=== PATIENT | female | born 1950 | race Caucasian/White ===

== ENCOUNTER 2017-03-11 01:42 | Emergency (ER) | payer MEDICAID, MEDICARE ==
[2017-03-11 02:37] LABS: ABSOLUTE BASOPHILS # (AUTO) 0.1 10^3/uL (0.0-0.2); ABSOLUTE EOSINOPHILS # (AUTO) 0.2 10^3/uL (0.0-0.6); ABSOLUTE LYMPHOCYTES (AUTO) 3.1 10^3/uL (0.5-4.7); ABSOLUTE MONOCYTES (AUTO) 0.6 10^3/uL (0.1-1.4); ABSOLUTE NEUT (AUTO) 5.7 10^3/uL (1.7-8.2); BASOPHILS % (AUTO) 0.9 % (0-2); EOSINOPHILS % (AUTO) 2.4 % (0-6); HEMATOCRIT 45.9 % (36.0-47.0); HEMOGLOBIN 15.2 g/dL (12.0-15.5); HGB HCT DIFFERENCE -0.3; LYMPHOCYTES % (AUTO) 31.6 % (13-45); MEAN CORPUSCULAR HEMOGLOBIN 28.8 pg (27.0-33.4); MEAN CORPUSCULAR HGB CONC 33.1 g/dL (32.0-36.0); MEAN CORPUSCULAR VOLUME 87 fl (80-97); MONOCYTES % (AUTO) 6.4 % (3-13); RED BLOOD COUNT 5.28 10^6/uL (3.72-5.28); SEGMENTED NEUTROPHILS % (AUTO) 58.7 % (42-78); WHITE BLOOD COUNT 9.7 10^3/uL (4.0-10.5)
[2017-03-11 02:45] LABS: APPEARANCE,URINE CLEAR; BILIRUBIN,URINE NEGATIVE (NEGATIVE); GLUCOSE, URINE >=500 mg/dL (NEGATIVE); KETONES,URINE NEGATIVE (NEGATIVE); LEUKOCYTE ESTERASE,URINE NEGATIVE (NEGATIVE); NITRITE,URINE NEGATIVE (NEGATIVE); PROTEIN,URINE NEGATIVE (NEGATIVE); URINE SPECIFIC GRAVITY 1.029; UROBILINOGEN,URINE NEGATIVE mg/dL (<2.0)
[2017-03-11 02:47] LABS: ALANINE AMINOTRANSFERASE 27 U/L (9-52); ALBUMIN 4.2 g/dL (3.5-5.0); ALKALINE PHOSPHATASE 146 U/L (38-126); ANION GAP 13 (5-19); ASPARTATE AMINO TRANSFERASE 19 U/L (14-36); BILIRUBIN,DIRECT 0.3 mg/dL (0.0-0.4); BILIRUBIN,TOTAL 0.6 mg/dL (0.2-1.3); BLOOD UREA NITROGEN 27 mg/dL (7-20); CALCIUM 10.5 mg/dL (8.4-10.2); CARBON DIOXIDE 31 mmol/L (22-30); CHLORIDE 94 mmol/L (98-107); CREATININE RESULT 0.88 mg/dL (0.52-1.25); GLUCOSE 394 mg/dL (75-110); POTASSIUM 4.7 mmol/L (3.6-5.0); SODIUM 137.9 mmol/L (137-145); TOTAL PROTEIN 7.7 g/dL (6.3-8.2)
--- NOTE | 2017-03-11 03:31 | ER Document Report ---
ED Blood Sugar Problem - General Mode of Arrival: Ambulatory Information source: Patient TRAVEL OUTSIDE OF THE U.S. IN LAST 30 DAYS: No - HPI Onset: Other - Refer to HPI notes Associated symptoms: Weakness Similar symptoms previously: Yes Recently seen / treated by doctor: No <GABI MAYER - Last Filed: 03/11/17 04:10> <DIANA SANABRIA - Last Filed: 03/11/17 04:18> - General Chief Complaint: High Blood Sugar Stated Complaint: BLOOD PRESSURE ISSUES Time Seen by Provider: 03/11/17 03:20 Notes: Patient is a 66 year old female presenting to the emergency department for fatigue and high blood glucose levels. Patient states her blood glucose level was 466 at home and she had already taken her 50 mg Lantus around 17:00 this evening. Patient states she feels like her legs are going to give out when she walks. Patient's last A1c level was 7 or 8; patient states that her diabetes is not managed very well and her doctor is trying different medications and insulin. Patient states she recently moved to the [facility] from [facility]. Patient's primary care physician is still in [place]. (GABI MAYER) - Related Data Allergies/Adverse Reactions: codeine Adverse Reaction (Intermediate, Verified 03/11/17 02:00) Nausea Past Medical History - General Information source: Patient - Social History Smoking Status: Current Every Day Smoker Frequency of alcohol use: Rare Drug Abuse: None Family History: None Patient has suicidal ideation: No Patient has homicidal ideation: No - Past Medical History Cardiac Medical History: Reports: Hx Hypercholesterolemia, Hx Hypertension Endocrine Medical History: Reports: Hx Diabetes Mellitus Type 2 - lantis GI Medical History: Reports: Hx Gastroesophageal Reflux Disease Past Surgical History: Reports: Hx Cardiac Surgery - triple bypass 2013, Hx Cholecystectomy, Hx Gynecologic Surgery - left oophorectomy, Hx Orthopedic Surgery - left knee replacement, Hx Tonsillectomy, Hx Tubal Ligation <GABI MAYER - Last Filed: 03/11/17 04:10> Review of Systems - Review of Systems Constitutional: See HPI, Weakness EENT: No symptoms reported Cardiovascular: No symptoms reported Respiratory: No symptoms reported Gastrointestinal: No symptoms reported Genitourinary: No symptoms reported Female Genitourinary: No symptoms reported Musculoskeletal: No symptoms reported Skin: No symptoms reported Hematologic/Lymphatic: No symptoms reported Neurological/Psychological: No symptoms reported -: Yes All other systems reviewed and negative <GABI MAYER - Last Filed: 03/11/17 04:10> Physical Exam - Vital signs Interpretation: Hypertensive - General General appearance: Appears well, Alert In distress: Mild - HEENT Head: Normocephalic, Atraumatic Eyes: Normal Pupils: PERRL Mucous membranes: Dry - Respiratory Respiratory status: No respiratory distress Chest status: Nontender Breath sounds: Normal Chest palpation: Normal - Cardiovascular Rhythm: Regular Heart sounds: Normal auscultation Murmur: No - Abdominal Inspection: Obese Distension: No distension Bowel sounds: Normal Tenderness: Nontender Organomegaly: No organomegaly - Back Back: Normal, Nontender - Extremities General upper extremity: Normal inspection, Normal ROM, Normal strength General lower extremity: Normal inspection, Normal ROM, Normal strength - Neurological Neuro grossly intact: Yes Cognition: Normal Orientation: AAOx4 [place] Coma Scale Eye Opening: Spontaneous [place] Coma Scale Verbal: Oriented [place] Coma Scale Motor: Obeys Commands [place] Coma Scale Total: 15 Speech: Normal - Psychological Associated symptoms: Normal affect, Normal mood - Skin Skin Temperature: Warm Skin Moisture: Dry <GABI MAYER - Last Filed: 03/11/17 04:10> - Vital signs Interpretation: Hypertensive - General General appearance: Appears well, Alert <ELLYDIANA - Last Filed: 03/11/17 04:18> - Vital signs Vitals: Temp Pulse Resp BP Pulse Ox 97.6 F 66 16 163/63 H 97 03/11/17 01:53 03/11/17 01:53 03/11/17 01:53 03/11/17 01:53 03/11/17 01:53 Course - Laboratory Result Diagrams: 03/11/17 02:05 03/11/17 02:05 <GABI MAYER - Last Filed: 03/11/17 04:10> - Laboratory Result Diagrams: 03/11/17 02:05 03/11/17 02:05 - EKG Interpretation by De EKG shows normal: Sinus rhythm, [place], Intervals, QRS Complexes. abnormal: ST-T Waves - Borderline anterolateral T abnormalities Rate: Normal - 63 Rhythm: NSR [place]/QRS: LAHB/LAFB <DIANA SANABRIA - Last Filed: 03/11/17 04:18> - Re-evaluation Re-evalutation: 03/11/17 04:14 The patient states her A1c is usually between 7 and 8. Tonight her A1c is 12.4 This would suggest her blood sugar of 394 has become her baseline and she is probably not checking her sugars very frequently. She states that she was given regular insulin in the past but it caused her sugars to bottom out so she could not take it. (DIANA SANABRIA) - Vital Signs Vital signs: Temp Pulse Resp BP Pulse Ox 97.6 F 66 16 163/63 H 97 03/11/17 01:53 03/11/17 01:53 03/11/17 01:53 03/11/17 01:53 03/11/17 01:53 - Laboratory Laboratory results interpreted by me: 03/11/17 03/11/17 03/11/17 02:02 02:05 02:05 Chloride 94 L Carbon Dioxide 31 H BUN 27 H Glucose 394 H POC Glucose 356 H Hemoglobin A1c % 12.4 H Calcium 10.5 H Alkaline Phosphatase 146 H Urine Glucose (UA) 03/11/17 02:10 Chloride Carbon Dioxide BUN Glucose POC Glucose Hemoglobin A1c % Calcium Alkaline Phosphatase Urine Glucose (UA) >=500 H Discharge <GABI MAYER - Last Filed: 03/11/17 04:10> <DIANA SANABRIA - Last Filed: 03/11/17 04:18> - Discharge Clinical Impression: Poorly controlled diabetes mellitus, Dehydration Hyperglycemia due to type 2 diabetes mellitus Qualifiers: Diabetes mellitus intermediate insulin use: unspecified intermediate insulin use status Qualified Code(s): E11.65 - Type 2 diabetes mellitus with hyperglycemia Fatigue Qualifiers: Fatigue type: unspecified Qualified Code(s): R53.83 - Other fatigue Condition: Stable Disposition: HOME, SELF-CARE Additional Instructions: Fatigue: Fatigue can be caused by many medical and emotional problems. Fatigue can be an early symptom of infection, or can be caused by chronic infection. It can be a symptom of metabolic diseases like diabetes, hypothyroidism, or anemia. It can result from sleep problems such as sleep apnea. Fatigue can be a symptom of depression. Overuse of alcohol or caffeine can cause fatigue. Many drugs can cause fatigue, either as a side effect or when withdrawing from the drug. Until the evaluation is complete, try to keep up your normal activities. Get regular sleep hours, but avoid oversleeping. Try to get regular exercise. Eliminate alcohol, caffeine, and any unnecessary drugs, herbs, or medicines ( discuss any changes in prescription medicines with your doctor). Contact the doctor if there is any change for the worse. The fatigue you are experiencing may be due to the excessively high blood sugars you have been running for quite some time. These very high blood sugars also cause you to become dehydrated. You should drink plenty of fluids. Increase your Lantus dosing. Check your blood sugars before and after meals. Follow-up with your doctor on Monday to review your most recent lab work done this evening. RETURN TO THE EMERGENCY ROOM IF ANY NEW OR WORSENING SYMPTOMS. Scribe Attestation: 03/11/17 04:18 I personally performed the services described in the documentation, reviewed and edited the documentation which was dictated to the scribe in my presence, and it accurately records my words and actions. (DIANA SANABRIA) Scribe Documentation - Scribe Written by Gaetano:: Gaetano Howard 03/11/17 3:35 acting as scribe for :: Elly <GABI MAYER - Last Filed: 03/11/17 04:10>
[2017-03-11 03:44] LABS: ADD ON TESTING BLD IN LAB ACKNOWLEDGE
[2017-03-11 04:02] LABS: CREATINE KINASE 64 U/L (30-135)
[2017-03-11] MEDS ORDERED: INSULIN REG, HUMAN 100 UNIT/ML 3 ML VIAL (PYX) SUBCUT ONE (04:13)
[2017-03-11 04:17] LABS: CREATINE KINASE MB 0.79 ng/mL (<4.55); TROPONIN I < 0.012 ng/mL
[2017-03-11 04:42] VITALS: BP 128/71
--- NOTE | 2017-03-11 10:45 | EKG REPORT ---
SEVERITY:- ABNORMAL ECG - SINUS RHYTHM LEFT ANTERIOR FASCICULAR BLOCK BORDERLINE T ABNORMALITIES, ANT-LAT LEADS : Confirmed by: Joselito Cano 11-Mar-2017 10:43:52
== END 2017-03-11 04:30 | disposition home or self-care (01) ==
LOC: ER 01:42
DX: E11.65 Type 2 diabetes mellitus with hyperglycemia (principal); Z79.4 Long term (current) use of insulin; E86.0 Dehydration; R53.1 Weakness; I44.4 Left anterior fascicular block; F17.200 Nicotine dependence, unspecified, uncomplicated; I10 Essential (primary) hypertension; Z95.1 Presence of aortocoronary bypass graft
CPT/HCPCS: 93005; 99283; 36415; 82553; 82962; 82550; 85025; 80053; 81001; 84484; 83036; 93010; A9270; J1815

== ENCOUNTER 2017-03-14 18:34 | Emergency (ER) | payer MEDICAID, MEDICARE ==
[2017-03-14] MEDS ORDERED: DIPH/PERTUSS(ACELL)/TETANUS VAC/PF 0.5 ML SYR (>=10YO) IM ONE (20:10)
[2017-03-14] MEDS ORDERED: CEPHALEXIN 500 MG CAPSULE PO ONE (20:10)
--- NOTE | 2017-03-14 20:49 | ER Document Report ---
HPI - HPI Onset: Yesterday Onset/Duration: Sudden Quality of pain: Achy, Pressure Pain Level: 4 Associated Symptoms: None Exacerbated by: Standing, Movement, Walking Relieved by: Sitting Similar symptoms previously: No Recently seen / treated by doctor: No - CARDIOVASCULAR Cardiovascular: DENIES: Chest pain - DERM Skin Color: Normal, [place] Past Medical History - Social History Smoking Status: Current Every Day Smoker Chew tobacco use (# tins/day): No Frequency of alcohol use: None Drug Abuse: None Family History: None Patient has suicidal ideation: No Patient has homicidal ideation: No - Past Medical History Cardiac Medical History: Reports: Hx Hypercholesterolemia, Hx Hypertension Endocrine Medical History: Reports: Hx Diabetes Mellitus Type 2 - lantis Renal/ Medical History: Denies: Hx Peritoneal Dialysis GI Medical History: Reports: Hx Gastroesophageal Reflux Disease Past Surgical History: Reports: Hx Cardiac Surgery - triple bypass 2013, Hx Cholecystectomy, Hx Gynecologic Surgery - left oophorectomy, Hx Orthopedic Surgery - left knee replacement, Hx Tonsillectomy, Hx Tubal Ligation - Immunizations Hx Diphtheria, Pertussis, Tetanus Vaccination: No Vertical Provider Document - CONSTITUTIONAL Agree With Documented VS: Yes Exam Limitations: No Limitations General Appearance: WD/WN, No Apparent Distress - INFECTION CONTROL TRAVEL OUTSIDE OF THE [place]. IN LAST 30 DAYS: No - RESPIRATORY O2 Sat by Pulse Oximetry: 92 - CARDIOVASCULAR Pulses: Normal: Dorsalis pedis - MUSCULOSKELETAL/EXTREMETIES Musculoskeletal/Extremeties: MAEW, FROM, Tender - on the sole of the foot with a punture vani on the base of the left foot closer to the heel - NEURO Level of Consciousness: Awake, Alert, Appropriate Motor/Sensory: No Motor Deficit, No Sensory Deficit - DERM Integumentary: Warm, Dry, No Rash. negative: Abscess Course - Re-evaluation Re-evalutation: 03/14/17 22:34 Patient is a 8-year-old female who presents with left heel pain. Patient has known history of chronic uncontrolled diabetes. No concerns currently for diabetic ulcers. Patient initiated antibiotic instruction to follow-up with primary care this week - Vital Signs Vital signs: Temp Pulse Resp BP Pulse Ox 97.9 F 58 L 15 140/67 H 92 03/14/17 19:26 03/14/17 19:26 03/14/17 19:26 03/14/17 19:26 03/14/17 19:26 Discharge - Discharge Clinical Impression: Puncture wound Condition: Good Disposition: HOME, SELF-CARE Instructions: Puncture Wound ([facility]), Augmentin ([facility]) Prescriptions: Amox Tr/Potassium Clavulanate [Augmentin 875-125 Tablet] 1 tab PO BID 10 Days Forms: Elevated Blood Pressure Referrals: MARCIAL ZUÑIGA MD [Primary Care Provider] - Follow up in 3-5 days
[2017-03-14 21:09] VITALS: BP 142/65
== END 2017-03-14 21:00 | disposition home or self-care (01) ==
LOC: ER 18:34
DX: S91.332A Puncture wound without foreign body, left foot, initial encounter (principal); M79.672 Pain in left foot; G89.29 Other chronic pain; F17.200 Nicotine dependence, unspecified, uncomplicated; W26.9XXA Contact with unspecified sharp object(s), initial encounter
CPT/HCPCS: 99283; 90471; 82962; 90715; A9270

== ENCOUNTER 2017-05-18 15:15 | Emergency (ER) | payer MEDICARE, MEDICAID ==
--- NOTE | 2017-05-18 17:04 | ER Document Report ---
ED Medical Screen (RME) - General Chief Complaint: Dizziness Stated Complaint: DIZZINESS Time Seen by Provider: 05/18/17 17:01 Notes: Patient says that she has been experiencing dizziness since yesterday. Says she feels off balance when she walks. Feeling very tired and as if she cannot think straight. Denies any headache. Denies any loss of consciousness. Also having pain in her right back and down her right leg but that has been going on for months. Past history of hypertension, insulin-dependent diabetes, coronary bypass surgery. Depression. TRAVEL OUTSIDE OF THE [place] IN LAST 30 DAYS: No - Related Data Allergies/Adverse Reactions: codeine Adverse Reaction (Intermediate, Verified 03/11/17 02:00) Nausea Past Medical History - Social History Chew tobacco use (# tins/day): No Frequency of alcohol use: Occasional Drug Abuse: None - Past Medical History Cardiac Medical History: Reports: Hx Hypercholesterolemia, Hx Hypertension Endocrine Medical History: Reports: Hx Diabetes Mellitus Type 2 - lantis Renal/ Medical History: Denies: Hx Peritoneal Dialysis GI Medical History: Reports: Hx Gastroesophageal Reflux Disease Past Surgical History: Reports: Hx Cardiac Surgery - triple bypass 2014, Hx Cholecystectomy, Hx Gynecologic Surgery - left oophorectomy, Hx Orthopedic Surgery - left knee replacement, Hx Tonsillectomy, Hx Tubal Ligation - Immunizations Hx Diphtheria, Pertussis, Tetanus Vaccination: No Physical Exam - Vital signs Vitals: Temp Pulse Resp BP Pulse Ox 97.6 F 55 L 20 142/52 H 95 05/18/17 15:36 05/18/17 15:36 05/18/17 15:36 05/18/17 15:36 05/18/17 15:36 Course - Vital Signs Vital signs: Temp Pulse Resp BP Pulse Ox 97.6 F 55 L 20 142/52 H 95 05/18/17 15:36 05/18/17 15:36 05/18/17 15:36 05/18/17 15:36 05/18/17 15:36
[2017-05-18 17:33] LABS: ABSOLUTE BASOPHILS # (AUTO) 0.1 10^3/uL (0.0-0.2); ABSOLUTE EOSINOPHILS # (AUTO) 0.3 10^3/uL (0.0-0.6); ABSOLUTE MONOCYTES (AUTO) 0.6 10^3/uL (0.1-1.4); ABSOLUTE NEUT (AUTO) 4.2 10^3/uL (1.7-8.2); BASOPHILS % (AUTO) 0.9 % (0-2); EOSINOPHILS % (AUTO) 3.1 % (0-6); HEMATOCRIT 41.8 % (36.0-47.0); HEMOGLOBIN 14.2 g/dL (12.0-15.5); HGB HCT DIFFERENCE 0.8; LYMPHOCYTES % (AUTO) 37.2 % (13-45); MEAN CORPUSCULAR HEMOGLOBIN 29.8 pg (27.0-33.4); MEAN CORPUSCULAR HGB CONC 34.1 g/dL (32.0-36.0); MEAN CORPUSCULAR VOLUME 88 fl (80-97); MONOCYTES % (AUTO) 6.9 % (3-13); RED BLOOD COUNT 4.78 10^6/uL (3.72-5.28); RED CELL DISTRIBUTION WIDTH 12.9 % (11.5-14.0); SEGMENTED NEUTROPHILS % (AUTO) 51.9 % (42-78); WHITE BLOOD COUNT 8.1 10^3/uL (4.0-10.5)
[2017-05-18 17:49] LABS: ALANINE AMINOTRANSFERASE 29 U/L (9-52); ALBUMIN 3.9 g/dL (3.5-5.0); ALKALINE PHOSPHATASE 140 U/L (38-126); ANION GAP 10 (5-19); ASPARTATE AMINO TRANSFERASE 20 U/L (14-36); BILIRUBIN,DIRECT 0.4 mg/dL (0.0-0.4); BILIRUBIN,TOTAL 0.5 mg/dL (0.2-1.3); BLOOD UREA NITROGEN 18 mg/dL (7-20); CALCIUM 9.5 mg/dL (8.4-10.2); CARBON DIOXIDE 30 mmol/L (22-30); CHLORIDE 98 mmol/L (98-107); CREATININE RESULT 0.72 mg/dL (0.52-1.25); GLUCOSE 280 mg/dL (75-110); POTASSIUM 4.4 mmol/L (3.6-5.0); SODIUM 137.9 mmol/L (137-145); TOTAL PROTEIN 6.8 g/dL (6.3-8.2)
--- NOTE | 2017-05-18 17:50 | RADIOLOGY REPORT (SQ) ---
EXAM DESCRIPTION: CHEST PA/LAT COMPLETED DATE/TIME: 05/18/2017 5:37 pm REASON FOR STUDY: Chest pain COMPARISON: None. EXAM PARAMETERS: NUMBER OF VIEWS: two views TECHNIQUE: Digital Frontal and Lateral radiographic views of the chest acquired. RADIATION DOSE: NA LIMITATIONS: none FINDINGS: LUNGS AND PLEURA: There is linear scarring or atelectasis in the left midlung field. No c onsolidation or effusions. MEDIASTINUM AND HILAR STRUCTURES: No masses or contour abnormalities. HEART AND VASCULAR STRUCTURES: Heart normal size. No evidence for failure. BONES: There is thoracic scoliosis with concavity toward the left. HARDWARE: None in the chest. OTHER: No other significant finding. IMPRESSION: NO SIGNIFICANT RADIOGRAPHIC FINDING IN THE CHEST. TECHNICAL DOCUMENTATION: JOB ID: [id number] [employer]- All Rights Reserved
--- NOTE | 2017-05-18 17:54 | RADIOLOGY REPORT (SQ) ---
EXAM DESCRIPTION: CT HEAD WITHOUT COMPLETED DATE/TIME: 05/18/2017 5:29 pm REASON FOR STUDY: Dizzy and off-balance COMPARISON: None. TECHNIQUE: Axial images acquired through the brain without intravenous contrast. Images reviewed wi th bone, brain and subdural windows. Images stored on PACS. All CT scanners at this facility use dose modulation, iterative reconstruction, and/or weight based d osing when appropriate to reduce radiation dose to as low as reasonably achievable (ALARA). [facility]: Dose Right [facility]: CareDose [facility]: Dose Right [facility]: Teradose 4D [facility]: [employer] RADIATION DOSE: Up-to-date CT equipment and radiation dose reduction techniques were employed. CTDIv ol: 64.6 mGy. DLP: 1163 mGy-cm. mGy. LIMITATIONS: None. FINDINGS: VENTRICLES: Normal size and contour. CEREBRUM: There is decreased attenuation throughout the periventricular white matter. This is out of proportion the patient's age. This can be seen in longstanding hypertension or accelerated hyperten ailyn. Other demyelinating or dysmyelinating disorders cannot be excluded. No focal mass, hemorrhage or midline shift. CEREBELLUM: No masses. No hemorrhage. No alteration of density. No evidence for acute infarction. EXTRAAXIAL SPACES: No fluid collections. No masses. ORBITS AND GLOBE: No intra- or extraconal masses. Normal contour of globe without masses. CALVARIUM: No fracture. PARANASAL SINUSES: No fluid or mucosal thickening. SOFT TISSUES: No mass or hematoma. OTHER: No other significant finding. IMPRESSION: Diffuse periventricular subcortical white matter changes most consistent with small vess el disease. Other etiologies cannot be excluded. TECHNICAL DOCUMENTATION: JOB ID: [id number] Quality ID # [id number]: Final reports with documentation of one or more dose reduction techniques (e.g., Au tomated exposure control, adjustment of the mA and/or kV according to patient size, use of iterative reconstruction technique) 2010 [employer]- All Rights Reserved
[2017-05-18 18:01] LABS: CREATINE KINASE MB 2.27 ng/mL (<4.55)
[2017-05-18 18:02] LABS: TROPONIN I < 0.012 ng/mL
[2017-05-18 19:15] LABS: APPEARANCE,URINE CLEAR; BILIRUBIN,URINE NEGATIVE (NEGATIVE); GLUCOSE, URINE >=500 mg/dL (NEGATIVE); KETONES,URINE NEGATIVE (NEGATIVE); LEUKOCYTE ESTERASE,URINE NEGATIVE (NEGATIVE); NITRITE,URINE NEGATIVE (NEGATIVE); PROTEIN,URINE NEGATIVE (NEGATIVE); URINE SPECIFIC GRAVITY 1.016; UROBILINOGEN,URINE NEGATIVE mg/dL (<2.0)
--- NOTE | 2017-05-18 19:21 | ER Document Report ---
ED General - General Chief Complaint: Dizziness Stated Complaint: DIZZINESS Time Seen by Provider: 05/18/17 17:01 Notes: Patient is a 66-year-old female with past medical history of hypertension, hyperlipidemia, [id number] diabetes who presents with 2 days of intermittent lightheadedness and near syncope. Patient reports that the symptoms are only present after she gets up from a sitting to standing position and ambulates. She has not had any episodes of syncope. Nothing seems to improve her symptoms. She denies a history of similar symptoms in the past. No recent medication changes. She has not followed up with her primary care doctor regarding today's concerns that she is recently moved to the area. She denies any weakness, numbness, ataxia, difficulty speaking, bowel or bladder incontinence. She has not had any recent falls or head trauma. No chest pain or shortness of breath TRAVEL OUTSIDE OF THE [place] IN LAST 30 DAYS: No - Related Data Allergies/Adverse Reactions: codeine Adverse Reaction (Intermediate, Verified 03/11/17 02:00) Nausea Home Medications: Current Home Medications Gabapentin [Gabapentin] 05/18/17 [History] Lisinopril/Hydrochlorothiazide [Lisinopril-Hctz 10-12.5 mg Tab] 05/18/17 [ History] Metoprolol Tartrate [Metoprolol Tartrate] 05/18/17 [History] RX: Fluoxetine HCl [Prozac 20 mg Capsule] 05/18/17 [History] RX: Insulin Glargine,Hum.rec.anlog [Lantus Insulin 100 Unit/1 ml 10 ml] [History] RX: Pantoprazole Sodium 05/18/17 [History] Past Medical History - General Information source: Patient - Social History Smoking Status: Former Smoker Chew tobacco use (# tins/day): No Frequency of alcohol use: Occasional Drug Abuse: None Lives with: Spouse/Significant other Family History: Reviewed & Not Pertinent Patient has suicidal ideation: No Patient has homicidal ideation: No - Past Medical History Cardiac Medical History: Reports: Hx Hypercholesterolemia, Hx Hypertension Endocrine Medical History: Reports: Hx Diabetes Mellitus Type 2 - lantis Renal/ Medical History: Denies: Hx Peritoneal Dialysis GI Medical History: Reports: Hx Gastroesophageal Reflux Disease Past Surgical History: Reports: Hx Cardiac Surgery - triple bypass 2013, Hx Cholecystectomy, Hx Gynecologic Surgery - left oophorectomy, Hx Orthopedic Surgery - left knee replacement, Hx Tonsillectomy, Hx Tubal Ligation - Immunizations Hx Diphtheria, Pertussis, Tetanus Vaccination: No Review of Systems - Review of Systems Notes: Constitutional: Negative for fever. HENT: Negative for sore throat. Eyes: Negative for visual changes. Cardiovascular: Negative for chest pain. Respiratory: Negative for shortness of breath. Gastrointestinal: Negative for abdominal pain, vomiting or diarrhea. Genitourinary: Negative for dysuria. Musculoskeletal: Negative for back pain. Skin: Negative for rash. Neurological: Negative for headaches, weakness or numbness. 10 point ROS negative except as marked above and in HPI. Physical Exam - Vital signs Vitals: Temp Pulse Resp BP Pulse Ox 97.6 F 55 L 20 142/52 H 95 05/18/17 15:36 05/18/17 15:36 05/18/17 15:36 05/18/17 15:36 05/18/17 15:36 Interpretation: Bradycardic Notes: PHYSICAL EXAMINATION: GENERAL: Well-appearing, well-nourished and in no acute distress. HEAD: Atraumatic, normocephalic. EYES: Pupils equal round and reactive to light, extraocular movements intact, sclera anicteric, conjunctiva are normal. ENT: nares patent, oropharynx clear without exudates. Moist mucous membranes. NECK: Normal range of motion, supple without lymphadenopathy LUNGS: Breath sounds clear to auscultation bilaterally and equal. No wheezes rales or rhonchi. HEART: Regular bradycardia without murmurs ABDOMEN: Soft, nontender, normoactive bowel sounds. No guarding, no rebound. No masses appreciated. EXTREMITIES: Normal range of motion, no pitting or edema. No cyanosis. NEUROLOGICAL: Face symmetric. Tongue protrudes midline. Extraocular motions intact. Pupils are 2 mm and equally reactive. Normal speech, normal gait. 5 out of 5 strength in both the distal and proximal upper and lower extremities bilaterally. Sensation is grossly intact throughout. Finger to nose testing normal. Pronator drift normal. PSYCH: Normal mood, normal affect. SKIN: Warm, Dry, normal turgor, no rashes or lesions noted. Course - Re-evaluation Re-evalutation: 05/18/17 19:18 Patient presents with intermittent lightheadedness with positional change and exertion. Patient is profoundly bradycardic here in the emergency department initially at 49 bpm at time of my assessment. She is still on metoprolol tartrate 25 mg twice daily and this dosing has not changed in the past several years. I suspect the patient is over beta blocked and this is triggering her symptoms. She has no complaint of vertigo and has completely normal neurologic assessment at the bedside without any positive cerebellar testing. Moreover she has no symptoms lying in the bed. When I take her from a lying to sitting position patient immediately states this is exactly the type of symptoms she is usually having. I have instructed the patient to decrease her metoprolol to 12.5 mg twice daily and if this does not resolve her symptoms after 48 hours to completely discontinue this medication. I have also instructed her to follow- up closely with her primary care doctor. At this time will discharge with return precautions and follow-up recommendations. Verbal discharge instructions given a the bedside and opportunity for questions given. Medication warnings reviewed. Patient is in agreement with this plan and has verbalized understanding of return precautions and the need for primary care follow-up in the next 24-72 hours. - Vital Signs Vital signs: Temp Pulse Resp BP Pulse Ox 97.4 F 51 L 18 148/73 H 98 05/18/17 20:19 05/18/17 20:19 05/18/17 20:19 05/18/17 20:19 05/18/17 20:19 - Laboratory Result Diagrams: 05/18/17 17:20 05/18/17 17:20 Laboratory results interpreted by me: 05/18/17 05/18/17 17:20 18:50 Glucose 280 H Alkaline Phosphatase 140 H Urine Glucose (UA) >=500 H - Diagnostic Test Radiology reviewed: Image reviewed, Reports reviewed Radiology results interpreted by me: 05/19/17 04:20 Chest x-ray: No acute infiltrate or pneumothorax CT head: No acute intracranial bleed - EKG Interpretation by Me Additional EKG results interpreted by me: 05/19/17 04:20 Sinus bradycardia. Rate 51. No ST elevations or depressions. QTC is 417. Discharge - Discharge Clinical Impression: Bradycardia, Lightheadedness, Orthostasis Condition: Good Disposition: HOME, SELF-CARE Additional Instructions: You were seen today for lightheadedness/dizziness. Your workup is normal today. Your symptoms are likely due to your medication called metoprolol. You are currently taking 25 mg twice daily. Decrease this to 12.5 mg twice daily. If this does not resolve your symptoms after 48 hours, please completely discontinue the medication. Please follow closely with your primary care physician in the next 1-3 days. Return if you pass out, have additional episodes of lightheadedness, develop weakness/numbness, have persistent vomiting , chest pain, shortness of breath or any other symptoms that are concerning to you Referrals: MARCIAL ZUÑIGA MD [Primary Care Provider] - Follow up in 3-5 days
[2017-05-18 20:20] VITALS: BP 148/73
--- NOTE | 2017-05-19 12:50 | EKG REPORT ---
SEVERITY:- ABNORMAL ECG - SINUS RHYTHM LEFT ANTERIOR FASCICULAR BLOCK : Confirmed by: Joselito Cano 19-May-2017 12:48:34
== END 2017-05-18 21:12 | disposition home or self-care (01) ==
LOC: ER 15:15
DX: R00.1 Bradycardia, unspecified (principal); R55 Syncope and collapse; I10 Essential (primary) hypertension; E11.9 Type 2 diabetes mellitus without complications; Z87.891 Personal history of nicotine dependence; Z79.899 Other long term (current) drug therapy
CPT/HCPCS: 36415; 70450; 71020; 80053; 81001; 82553; 84484; 85025; 93005; 93010; 99285

== ENCOUNTER 2017-07-20 12:43 | Emergency (ER) | payer MEDICARE ==
[2017-07-20 13:37] LABS: VENOUS BLOOD HCO3 31.5 mmol/L (20-32); VENOUS BLOOD PCO2 53.2 mmHg (35-63); VENOUS BLOOD PH 7.39 (7.30-7.42)
[2017-07-20 13:39] LABS: ABSOLUTE BASOPHILS # (AUTO) 0.1 10^3/uL (0.0-0.2); ABSOLUTE EOSINOPHILS # (AUTO) 0.2 10^3/uL (0.0-0.6); ABSOLUTE LYMPHOCYTES (AUTO) 2.3 10^3/uL (0.5-4.7); ABSOLUTE MONOCYTES (AUTO) 0.5 10^3/uL (0.1-1.4); ABSOLUTE NEUT (AUTO) 4.8 10^3/uL (1.7-8.2); BASOPHILS % (AUTO) 1.1 % (0-2); EOSINOPHILS % (AUTO) 2.7 % (0-6); HEMATOCRIT 41.7 % (36.0-47.0); HEMOGLOBIN 14.2 g/dL (12.0-15.5); HGB HCT DIFFERENCE 0.9; MEAN CORPUSCULAR HEMOGLOBIN 29.2 pg (27.0-33.4); MEAN CORPUSCULAR VOLUME 86 fl (80-97); MONOCYTES % (AUTO) 5.9 % (3-13); RED BLOOD COUNT 4.86 10^6/uL (3.72-5.28); RED CELL DISTRIBUTION WIDTH 12.5 % (11.5-14.0); SEGMENTED NEUTROPHILS % (AUTO) 61.3 % (42-78); WHITE BLOOD COUNT 7.8 10^3/uL (4.0-10.5)
[2017-07-20 13:43] LABS: PROTHROMBIN TIME 12.9 SEC (11.4-15.4)
[2017-07-20 13:55] LABS: ALANINE AMINOTRANSFERASE 30 U/L (9-52); ALBUMIN 4.1 g/dL (3.5-5.0); ALKALINE PHOSPHATASE 141 U/L (38-126); ANION GAP 15 (5-19); ASPARTATE AMINO TRANSFERASE 16 U/L (14-36); BILIRUBIN,DIRECT 0.4 mg/dL (0.0-0.4); BILIRUBIN,TOTAL 0.8 mg/dL (0.2-1.3); BLOOD UREA NITROGEN 23 mg/dL (7-20); CALCIUM 10.1 mg/dL (8.4-10.2); CARBON DIOXIDE 28 mmol/L (22-30); CHLORIDE 97 mmol/L (98-107); CREATININE RESULT 1.01 mg/dL (0.52-1.25); POTASSIUM 4.5 mmol/L (3.6-5.0); SODIUM 139.8 mmol/L (137-145); TOTAL PROTEIN 7.2 g/dL (6.3-8.2)
[2017-07-20] MEDS ORDERED: NORMAL SALINE 1000 ML 1,000 ML IV ONE (14:02)
[2017-07-20 14:11] LABS: GLUCOSE 487 mg/dL (75-110)
[2017-07-20] MEDS ORDERED: INSULIN REG, HUMAN 100 UNIT/ML 3 ML VIAL (PYX) IV ONE (14:15)
--- NOTE | 2017-07-20 14:18 | ER Document Report ---
ED General - General Chief Complaint: Weakness Stated Complaint: WEAKNESS Time Seen by Provider: 07/20/17 14:00 Mode of Arrival: Ambulatory Information source: Patient Notes: 66-year-old diabetic female presents with complaints of weakness high blood sugar. Patient notes she ran out of her test strips Gluco Navii and does not know how much insulin to give herself. TRAVEL OUTSIDE OF THE [place] IN LAST 30 DAYS: No - HPI Onset: Just prior to arrival Onset/Duration: Sudden Quality of pain: No pain Severity: Mild Pain Level: Denies Associated symptoms: Weakness Exacerbated by: Denies Relieved by: Denies Similar symptoms previously: Yes Recently seen / treated by doctor: Yes - Related Data Allergies/Adverse Reactions: codeine Adverse Reaction (Intermediate, Verified 03/11/17 02:00) Nausea Past Medical History - Social History Smoking Status: Never Smoker Cigarette use (# per day): No Chew tobacco use (# tins/day): No Smoking Education Provided: No Family History: Reviewed & Not Pertinent - Past Medical History Cardiac Medical History: Reports: Hx Hypercholesterolemia, Hx Hypertension Endocrine Medical History: Reports: Hx Diabetes Mellitus Type 2 - lantis Renal/ Medical History: Denies: Hx Peritoneal Dialysis GI Medical History: Reports: Hx Gastroesophageal Reflux Disease Past Surgical History: Reports: Hx Cardiac Surgery - triple bypass 2014, Hx Cholecystectomy, Hx Gynecologic Surgery - left oophorectomy, Hx Orthopedic Surgery - left knee replacement, Hx Tonsillectomy, Hx Tubal Ligation - Immunizations Hx Diphtheria, Pertussis, Tetanus Vaccination: No Review of Systems - Review of Systems Notes: REVIEW OF SYSTEMS: CONSTITUTIONAL : Denies fever, chills, or sweats. Denies recent illness. EENT: Denies eye, ear, throat, or mouth pain or symptoms. Denies nasal or sinus congestion or discharge. Denies throat, tongue, or mouth swelling or difficulty swallowing. CARDIOVASCULAR: Denies chest pain. Denies palpitations or racing or irregular heart beat. Denies ankle edema. RESPIRATORY: Denies cough, cold, or chest congestion. Denies shortness of breath, difficulty breathing, or wheezing. GASTROINTESTINAL: Denies abdominal pain or distention. Denies nausea, vomiting , or diarrhea. Denies blood in vomitus, stools, or per rectum. Denies black, tarry stools. Denies constipation. GENITOURINARY: Denies difficulty urinating, painful urination, burning, frequency, blood in urine, or discharge. FEMALE GENITOURINARY: Denies vaginal bleeding, heavy or abnormal periods, irregular periods. Denies vaginal discharge or odor. MUSCULOSKELETAL: Denies back or neck pain or stiffness. Denies joint pain or swelling. SKIN: Denies rash, lesions or sores. HEMATOLOGIC : Denies easy bruising or bleeding. LYMPHATIC: Denies swollen, enlarged glands. NEUROLOGICAL: admits ot weakness PSYCHIATRIC: Denies anxiety or stress. Denies depression, suicidal ideation, or homicidal ideation. ALL OTHER SYSTEMS REVIEWED AND NEGATIVE. PHYSICAL EXAMINATION: GENERAL: Well-appearing, well-nourished and in no acute distress. HEAD: Atraumatic, normocephalic. EYES: Pupils equal round and reactive to light, extraocular movements intact, conjunctiva are normal. ENT: Nares patent, oropharynx clear without exudates. Moist mucous membranes. NECK: Normal range of motion, supple without lymphadenopathy LUNGS: Breath sounds clear to auscultation bilaterally and equal. No wheezes rales or rhonchi. HEART: Regular rate and rhythm without murmurs ABDOMEN: Soft, nontender, nondistended abdomen. No guarding, no rebound. No masses appreciated. Female : deferred Musculoskeletal: Normal range of motion, no pitting or edema. No cyanosis. NEUROLOGICAL: Cranial nerves grossly intact. Normal speech, normal gait. Normal sensory, motor exams PSYCH: Normal mood, normal affect. SKIN: Warm, Dry, normal turgor, no rashes or lesions noted. Dictation was performed using [employer] voice recognition software Physical Exam - Vital signs Vitals: Resp Pulse Ox 14 94 07/20/17 12:59 07/20/17 12:59 Course - Re-evaluation Re-evalutation: 07/20/17 14:43 pt noted to be hyperglycemia, insulin and iv fluids given , I have called [facility] and they do not have this it is noted on their website 07/20/17 20:41 Patient's blood sugars improved significantly, she wishes to be discharged I will DC her home with close follow-up. Patient must get the lancets and strips so she can actually take care of her diabetes more appropriately After performing a Medical Screening Examination, I estimate there is LOW risk for ACUTE APPENDICITIS, BOWEL OBSTRUCTION, ACUTE CHOLECYSTITIS, PERFORATED DIVERTICULITIS, INCARCERATED HERNIA, PANCREATITIS, PELVIC INFLAMMATORY DISEASE, PERFORATED ULCER, ECTOPIC , or TUBO-OVARIAN ABSCESS, thus I consider the discharge disposition reasonable. Also, there is no evidence or peritonitis , sepsis, or toxicity. I have reevaluated this patient multiple times and no significant life threatening changes are noted. The patient and I have discussed the diagnosis and risks, and we agree with discharging home with close follow-up with the understanding that symptoms and presentations can change. We also discussed returning to the Emergency Department immediately if new or worsening symptoms occur. We have discussed the symptoms which are most concerning (e.g., bloody stool, fever, changing or worsening pain, vomiting) that necessitate immediate return. - Vital Signs Vital signs: Temp Pulse Resp BP Pulse Ox 97.7 F 13 140/65 H 98 07/20/17 16:15 07/20/17 16:15 07/20/17 16:15 07/20/17 16:15 - Laboratory Result Diagrams: 07/20/17 13:08 07/20/17 13:08 Laboratory results interpreted by me: 07/20/17 07/20/17 07/20/17 13:08 15:21 15:43 Chloride 97 L BUN 23 H Est GFR (Non-Af Amer) 55 L Glucose 487 H* POC Glucose 221 H Alkaline Phosphatase 141 H Urine Glucose (UA) >=500 H Critical Care Note - Critical Care Note Total time excluding time spent on procedures (mins): 38 Comments: 38 minutes of critical care time spent in direct contact evaluating and reevaluating the patient, treating symptoms, reviewing labs and studies and speaking with family and consultants excluding any procedures Discharge - Discharge Clinical Impression: Hyperglycemia Condition: Stable Disposition: HOME, SELF-CARE Instructions: Hyperglycemia ([facility]) Additional Instructions: Follow up with your physician tomorrow for further care or return to the ED IMMEDIATELY if symptoms worsen or new concerns occur. If you cannot afford to follow up with your primary care physician a list of low cost clinics have been provided at the end of your discharge papers as well.
[2017-07-20 15:36] LABS: APPEARANCE,URINE CLEAR; BILIRUBIN,URINE NEGATIVE (NEGATIVE); GLUCOSE, URINE >=500 mg/dL (NEGATIVE); KETONES,URINE NEGATIVE (NEGATIVE); LEUKOCYTE ESTERASE,URINE NEGATIVE (NEGATIVE); NITRITE,URINE NEGATIVE (NEGATIVE); PROTEIN,URINE NEGATIVE (NEGATIVE); URINE SPECIFIC GRAVITY 1.022; UROBILINOGEN,URINE NEGATIVE mg/dL (<2.0)
[2017-07-20 18:40] VITALS: BP 140/65
--- NOTE | 2017-07-22 07:47 | EKG REPORT ---
SEVERITY:- ABNORMAL ECG - SINUS RHYTHM PROBABLE LEFT ATRIAL ABNORMALITY LEFT ANTERIOR FASCICULAR BLOCK BORDERLINE T ABNORMALITIES, ANT-LAT LEADS : Confirmed by: Fabrice Martinez MD 22-Jul-2017 07:47:01
== END 2017-07-20 16:49 | disposition home or self-care (01) ==
LOC: ER 12:43
DX: E11.65 Type 2 diabetes mellitus with hyperglycemia (principal); Z79.4 Long term (current) use of insulin; R53.1 Weakness; I10 Essential (primary) hypertension; Z95.1 Presence of aortocoronary bypass graft
CPT/HCPCS: 93005; 99291; 96360; 36415; 87040; 87086; 82962; 85025; 85610; 80053; 81001; 82803; 83605; 93010; A9270; J7030; J1815

== ENCOUNTER 2017-09-11 15:31 | Emergency (ER) | payer MEDICARE, MEDICAID ==
[2017-09-11] MEDS ORDERED: ASPIRIN 81 MG TABLET, CHEWABLE PO ONE (17:31)
--- NOTE | 2017-09-11 17:34 | ER Document Report ---
ED Medical Screen (RME) - General Chief Complaint: Chest Pain Stated Complaint: CHEST PRESSURE Time Seen by Provider: 09/11/17 17:31 Mode of Arrival: Medic Information source: Patient Notes: 67-year-old female presents to ED for complaint of chest pain and pressure 2 days with shortness of breath and no energy. She states if she tries to walk across the room she gets extremely short of breath. She has had the episodes of chest pain and pressure 2 days off and on it will get better and then get worse. She has had a history of a bypass surgery 4 years ago and at that time they told her she had a lot of fluid on her lung. She states that that time she was a heavy smoker now she just uses a per cigarettes. She went to the urgent care because of her shortness of breath and chest pain and they sent her to the ED via EMS. Lungs sound clear at this time. I have greeted and performed a rapid initial assessment of this patient. A comprehensive ED assessment and evaluation of the patient, analysis of test results and completion of medical decision making process will be conducted by an additional ED providers. TRAVEL OUTSIDE OF THE [place] IN LAST 30 DAYS: No - Related Data Allergies/Adverse Reactions: codeine Adverse Reaction (Intermediate, Verified 09/11/17 15:31) Nausea Past Medical History - Past Medical History Cardiac Medical History: Reports: Hx Hypercholesterolemia, Hx Hypertension Endocrine Medical History: Reports: Hx Diabetes Mellitus Type 2 - lantis Renal/ Medical History: Denies: Hx Peritoneal Dialysis GI Medical History: Reports: Hx Gastroesophageal Reflux Disease Past Surgical History: Reports: Hx Cardiac Surgery - triple bypass 2014, Hx Cholecystectomy, Hx Gynecologic Surgery - left oophorectomy, Hx Orthopedic Surgery - left knee replacement, Hx Tonsillectomy, Hx Tubal Ligation - Immunizations Hx Diphtheria, Pertussis, Tetanus Vaccination: No Physical Exam - Vital signs Vitals: Temp Pulse Resp BP Pulse Ox 98.3 F 81 17 131/70 H 97 09/11/17 15:57 09/11/17 15:57 09/11/17 15:57 09/11/17 15:57 09/11/17 15:57 Course - Vital Signs Vital signs: Temp Pulse Resp BP Pulse Ox 98.3 F 81 17 131/70 H 97 09/11/17 15:57 09/11/17 15:57 09/11/17 15:57 09/11/17 15:57 09/11/17 15:57
[2017-09-11 17:56] LABS: ABSOLUTE BASOPHILS # (AUTO) 0.1 10^3/uL (0.0-0.2); ABSOLUTE EOSINOPHILS # (AUTO) 0.3 10^3/uL (0.0-0.6); ABSOLUTE LYMPHOCYTES (AUTO) 3.5 10^3/uL (0.5-4.7); ABSOLUTE MONOCYTES (AUTO) 0.8 10^3/uL (0.1-1.4); ABSOLUTE NEUT (AUTO) 8.6 10^3/uL (1.7-8.2); BASOPHILS % (AUTO) 0.7 % (0-2); HEMATOCRIT 41.3 % (36.0-47.0); HEMOGLOBIN 13.8 g/dL (12.0-15.5); HGB HCT DIFFERENCE 0.1; LYMPHOCYTES % (AUTO) 26.6 % (13-45); MEAN CORPUSCULAR HEMOGLOBIN 28.4 pg (27.0-33.4); MEAN CORPUSCULAR HGB CONC 33.3 g/dL (32.0-36.0); MEAN CORPUSCULAR VOLUME 85 fl (80-97); MONOCYTES % (AUTO) 5.9 % (3-13); RED BLOOD COUNT 4.85 10^6/uL (3.72-5.28); RED CELL DISTRIBUTION WIDTH 12.7 % (11.5-14.0); SEGMENTED NEUTROPHILS % (AUTO) 64.8 % (42-78); WHITE BLOOD COUNT 13.2 10^3/uL (4.0-10.5)
--- NOTE | 2017-09-11 18:01 | RADIOLOGY REPORT (SQ) ---
EXAM DESCRIPTION: CHEST PA/LAT COMPLETED DATE/TIME: 09/11/2017 5:48 pm REASON FOR STUDY: cough short of breath chest pain COMPARISON: 05/18/2017 EXAM PARAMETERS: NUMBER OF VIEWS: two views TECHNIQUE: Digital Frontal and Lateral radiographic views of the chest acquired. RADIATION DOSE: NA LIMITATIONS: none FINDINGS: LUNGS AND PLEURA: No opacities, masses or pneumothorax. No pleural effusion. MEDIASTINUM AND HILAR STRUCTURES: No masses or contour abnormalities. HEART AND VASCULAR STRUCTURES: Heart normal size. No evidence for failure. BONES: Scoliosis. HARDWARE: Sternotomy wires. OTHER: No other significant finding. IMPRESSION: NO SIGNIFICANT RADIOGRAPHIC FINDING IN THE CHEST. TECHNICAL DOCUMENTATION: JOB ID: [id number] [employer]- All Rights Reserved
[2017-09-11 18:13] LABS: ALANINE AMINOTRANSFERASE 32 U/L (9-52); ALBUMIN 4.2 g/dL (3.5-5.0); ALKALINE PHOSPHATASE 136 U/L (38-126); ANION GAP 15 (5-19); ASPARTATE AMINO TRANSFERASE 22 U/L (14-36); BILIRUBIN,DIRECT 0.3 mg/dL (0.0-0.4); BILIRUBIN,TOTAL 0.5 mg/dL (0.2-1.3); BLOOD UREA NITROGEN 26 mg/dL (7-20); CALCIUM 10.5 mg/dL (8.4-10.2); CARBON DIOXIDE 26 mmol/L (22-30); CHLORIDE 97 mmol/L (98-107); CREATINE KINASE 93 U/L (30-135); CREATININE RESULT 0.89 mg/dL (0.52-1.25); GLUCOSE 178 mg/dL (75-110); POTASSIUM 4.4 mmol/L (3.6-5.0); SODIUM 137.7 mmol/L (137-145); TOTAL PROTEIN 7.2 g/dL (6.3-8.2)
[2017-09-11 18:26] LABS: CREATINE KINASE MB 1.32 ng/mL (<4.55)
[2017-09-11 18:27] LABS: TROPONIN I < 0.012 ng/mL
--- NOTE | 2017-09-11 20:38 | EKG REPORT ---
SEVERITY:- ABNORMAL ECG - SINUS RHYTHM PROBABLE LEFT ATRIAL ABNORMALITY LEFT ANTERIOR FASCICULAR BLOCK : Confirmed by: Joselito Cano 11-Sep-2017 20:38:09
--- NOTE | 2017-09-11 21:44 | ER Document Report ---
ED General - General Chief Complaint: Chest Pain Stated Complaint: CHEST PRESSURE Time Seen by Provider: 09/11/17 17:31 Mode of Arrival: Medic Notes: Patient is a 67-year-old female with past medical history of hypertension, hyperlipidemia, coronary artery disease status post three-vessel bypass surgery 4 years ago who presents with exertional shortness of breath that has been getting progressively worse for the past 3-4 days. Patient notes that she also has a sensation of tightness right upper abdomen which typically also worsens with exertion. She denies otherwise any distinct chest pain. She denies any pain in the arms, jaw or back. She denies any associated diaphoresis or vomiting. She was seen in urgent care and then referred to the emergency department today given concerns of a possible cardiac etiology of her presentation. She has not had any provocative testing or cardiac catheterization since her bypass surgery 4 years ago. She has not yet established a primary care doctor in the local area. TRAVEL OUTSIDE OF THE [place] IN LAST 30 DAYS: No - Related Data Allergies/Adverse Reactions: codeine Adverse Reaction (Intermediate, Verified 09/11/17 15:31) Nausea Past Medical History - General Information source: Patient - Social History Smoking Status: Current Every Day Smoker Chew tobacco use (# tins/day): No Frequency of alcohol use: None Drug Abuse: None Lives with: Spouse/Significant other Family History: Reviewed & Not Pertinent Patient has suicidal ideation: No Patient has homicidal ideation: No - Past Medical History Cardiac Medical History: Reports: Hx Hypercholesterolemia, Hx Hypertension Endocrine Medical History: Reports: Hx Diabetes Mellitus Type 2 - lantis Renal/ Medical History: Denies: Hx Peritoneal Dialysis GI Medical History: Reports: Hx Gastroesophageal Reflux Disease Past Surgical History: Reports: Hx Cardiac Surgery - triple bypass 2014, Hx Cholecystectomy, Hx Gynecologic Surgery - left oophorectomy, Hx Orthopedic Surgery - left knee replacement, Hx Tonsillectomy, Hx Tubal Ligation - Immunizations Hx Diphtheria, Pertussis, Tetanus Vaccination: No Review of Systems - Review of Systems Notes: Constitutional: Negative for fever. HENT: Negative for sore throat. Eyes: Negative for visual changes. Cardiovascular: Negative for chest pain. Respiratory: Positive for shortness of breath. Gastrointestinal: Negative for abdominal pain, vomiting or diarrhea. Genitourinary: Negative for dysuria. Musculoskeletal: Negative for back pain. Skin: Negative for rash. Neurological: Negative for headaches, weakness or numbness. 10 point ROS negative except as marked above and in HPI. Physical Exam - Vital signs Vitals: Temp Pulse Resp BP Pulse Ox 98.3 F 81 17 131/70 H 97 09/11/17 15:57 09/11/17 15:57 09/11/17 15:57 09/11/17 15:57 09/11/17 15:57 Interpretation: Normal Notes: PHYSICAL EXAMINATION: GENERAL: Well-appearing, well-nourished and in no acute distress. HEAD: Atraumatic, normocephalic. EYES: Pupils equal round and reactive to light, extraocular movements intact, sclera anicteric, conjunctiva are normal. ENT: nares patent, oropharynx clear without exudates. Moist mucous membranes. NECK: Normal range of motion, supple without lymphadenopathy LUNGS: Breath sounds clear to auscultation bilaterally and equal. No wheezes rales or rhonchi. HEART: Regular rate and rhythm without murmurs ABDOMEN: Soft, nontender, normoactive bowel sounds. No guarding, no rebound. No masses appreciated. EXTREMITIES: Normal range of motion, no pitting or edema. No cyanosis. NEUROLOGICAL: No focal neurological deficits. Moves all extremities spontaneously and on command. PSYCH: Normal mood, normal affect. SKIN: Warm, Dry, normal turgor, no rashes or lesions noted. Course - Re-evaluation Re-evalutation: 09/11/17 21:40 Presentation of chest pain in an otherwise well appearing patient. Low clinical suspicion for ACS given clinical history, exam, EKG without ST elevations or depressions, and negative initial troponin. HEART score less than or equal to 3. PE also seems unlikely given clinical history, absence of tachycardia or dyspnea. Patient is PERC criteria negative. CXR without evidence of pneumothorax or pneumonia. No widened mediastinum. Aortic dissection also seems unlikely given history, symmetric pulses, CXR, and vitals. HEART Score: History:1 EC Age:2 Risk Factors:2 Troponin:0 Total: 4 Although both of patient's troponins are normal and her EKG is without ischemic changes I remain concerned that she has exertional dyspnea has been progressively worsening over the past 1 week and does have a history of coronary artery disease. I have recommended admission to the patient for inpatient stress testing and she has stated that this is not doable due to family concerns and the need to attend to several errands. I have offered in alternative although less preferable treatment method of having her follow-up with cardiology in the morning for an outpatient stress test. Patient has elected to pursue this option and does verbalize that this is a more risky option. She understands that there is a possibility of her having an acute myocardial infarction, worsening ischemic disease, or even if we further delay a possible critical occlusion. She has capacity. She does not meet IVC criteria, denies any alcohol or drug use today. Will discharge at patient's request. - Vital Signs Vital signs: Temp Pulse Resp BP Pulse Ox 98.3 F 81 15 128/55 H 96 09/11/17 15:57 09/11/17 15:57 09/11/17 21:39 09/11/17 21:39 09/11/17 21:39 - Laboratory Result Diagrams: 09/11/17 17:33 09/11/17 17:33 Laboratory results interpreted by me: 09/11/17 09/11/17 17:33 17:33 WBC 13.2 H Absolute Neutrophils 8.6 H Chloride 97 L BUN 26 H Glucose 178 H Calcium 10.5 H Alkaline Phosphatase 136 H - Diagnostic Test Radiology reviewed: Image reviewed, Reports reviewed Radiology results interpreted by me: 09/11/17 21:42 Chest x-ray: No acute infiltrate or pneumothorax - EKG Interpretation by Me Additional EKG results interpreted by me: 09/11/17 21:42 Rate 80. Sinus rhythm. No ST elevations or depressions. QTC is 439. Discharge - Discharge Clinical Impression: Exertional dyspnea, Chest discomfort Condition: Fair Disposition: HOME, SELF-CARE Additional Instructions: Your leaving the hospital although I have recommended admission. Please follow- up with cardiology as soon as possible to consider stress testing or catheterization as I am concerned about your shortness of breath when walking. This may be related to your heart. Please call Dr. Mullins tomorrow [phone]. Please return to the emergency department immediately if you would like to be admitted to the hospital, develop further symptoms, have vomiting, or any other symptoms that are concerning to you. Prescriptions: Fluoxetine HCl 20 mg PO DAILY #30 tablet Gabapentin 600 mg PO TID #90 tablet Lisinopril/Hydrochlorothiazide [Lisinopril-Hctz 20-12.5 mg Tab] 1 each PO DAILY #30 tablet Referrals: BECKA MULLINS MD [ACTIVE STAFF] - Follow up tomorrow
[2017-09-11 22:00] VITALS: BP 128/55
== END 2017-09-11 20:09 | disposition home or self-care (01) ==
LOC: ER 15:31
DX: R06.00 Dyspnea, unspecified (principal); R07.9 Chest pain, unspecified; I10 Essential (primary) hypertension; E78.5 Hyperlipidemia, unspecified; I25.10 Atherosclerotic heart disease of native coronary artery without angina pectoris; F17.200 Nicotine dependence, unspecified, uncomplicated
CPT/HCPCS: 93005; 99285; 36415; 82553; 82550; 85025; 80053; 84484; 83880; 71020; 93010; A9270

== ENCOUNTER 2017-10-10 21:34 | Emergency (ER) | payer MEDICARE, MEDICAID ==
[2017-10-10] MEDS ORDERED: NORMAL SALINE 1000 ML 1,000 ML IV ONE (23:16)
[2017-10-11 00:24] LABS: VENOUS BLOOD BASE EXCESS 2.6 mmol/L; VENOUS BLOOD HCO3 29.7 mmol/L (20-32); VENOUS BLOOD PCO2 55.1 mmHg (35-63); VENOUS BLOOD PH 7.35 (7.30-7.42)
[2017-10-11 00:34] LABS: APPEARANCE,URINE CLEAR; BILIRUBIN,URINE NEGATIVE (NEGATIVE); COLOR,URINE STRAW; GLUCOSE, URINE >=500 mg/dL (NEGATIVE); KETONES,URINE NEGATIVE (NEGATIVE); LEUKOCYTE ESTERASE,URINE NEGATIVE (NEGATIVE); NITRITE,URINE NEGATIVE (NEGATIVE); PROTEIN,URINE NEGATIVE (NEGATIVE); UROBILINOGEN,URINE NEGATIVE mg/dL (<2.0)
[2017-10-11 00:40] LABS: ANION GAP 12 (5-19); BLOOD UREA NITROGEN 24 mg/dL (7-20); CALCIUM 10.1 mg/dL (8.4-10.2); CARBON DIOXIDE 27 mmol/L (22-30); CHLORIDE 97 mmol/L (98-107); POTASSIUM 4.7 mmol/L (3.6-5.0); SODIUM 136.4 mmol/L (137-145)
[2017-10-11] MEDS ORDERED: INSULIN REG, HUMAN 100 UNIT/ML 3 ML VIAL (PYX) IV ONE (00:44)
[2017-10-11 00:49] LABS: GLUCOSE 495 mg/dL (75-110)
--- NOTE | 2017-10-11 00:49 | ER Document Report ---
ED General - General Chief Complaint: High Blood Sugar Stated Complaint: POSSIBLE HIGH BLOOD SUGAR Time Seen by Provider: 10/10/17 23:15 Notes: Patient is a 67-year-old female with a past medical history of insulin- dependent type 2 diabetes, hypertension, morbid obesity who presents with concerns of hyperglycemia. Patient states that she ran out of her Lantus 3 days ago and has been having hyperglycemia since that time. She reports that when her blood sugars become high she feels generally lethargic and has some blurring of her vision. She denies any other symptoms however at this time. She denies any localizing infectious symptoms. Nothing seems to improve or worsen her symptoms. She has not yet been able to follow-up with her primary care doctor regarding her concerns or need for refills of her chronic medications. TRAVEL OUTSIDE OF THE [place] IN LAST 30 DAYS: No - Related Data Allergies/Adverse Reactions: codeine Adverse Reaction (Intermediate, Verified 09/11/17 15:31) Nausea Past Medical History - General Information source: Patient - Social History Smoking Status: Current Every Day Smoker Chew tobacco use (# tins/day): No Frequency of alcohol use: Rare Drug Abuse: None Lives with: Spouse/Significant other Family History: Reviewed & Not Pertinent Patient has suicidal ideation: No Patient has homicidal ideation: No - Past Medical History Cardiac Medical History: Reports: Hx Hypercholesterolemia, Hx Hypertension Endocrine Medical History: Reports: Hx Diabetes Mellitus Type 2 - lantis Renal/ Medical History: Denies: Hx Peritoneal Dialysis GI Medical History: Reports: Hx Gastroesophageal Reflux Disease Psychiatric Medical History: Reports: Hx Depression Past Surgical History: Reports: Hx Cardiac Surgery - triple bypass 2014, Hx Cholecystectomy, Hx Gynecologic Surgery - left oophorectomy, Hx Orthopedic Surgery - left knee replacement, Hx Tonsillectomy, Hx Tubal Ligation - Immunizations Hx Diphtheria, Pertussis, Tetanus Vaccination: No Review of Systems - Review of Systems Notes: Constitutional: Negative for fever. HENT: Negative for sore throat. Eyes: Negative for visual changes. Cardiovascular: Negative for chest pain. Respiratory: Negative for shortness of breath. Gastrointestinal: Negative for abdominal pain, vomiting or diarrhea. Genitourinary: Negative for dysuria. Musculoskeletal: Negative for back pain. Skin: Negative for rash. Neurological: Negative for headaches, weakness or numbness. 10 point ROS negative except as marked above and in HPI. Physical Exam - Vital signs Vitals: Temp Pulse Resp BP Pulse Ox 97.5 F 80 22 H 155/81 H 95 10/10/17 21:35 10/10/17 21:35 10/10/17 21:35 10/10/17 21:35 10/10/17 21:35 Interpretation: Hypertensive Notes: PHYSICAL EXAMINATION: GENERAL: Well-appearing, well-nourished and in no acute distress. HEAD: Atraumatic, normocephalic. EYES: Pupils equal round and reactive to light, extraocular movements intact, sclera anicteric, conjunctiva are normal. ENT: nares patent, oropharynx clear without exudates. Moist mucous membranes. NECK: Normal range of motion, supple without lymphadenopathy LUNGS: Breath sounds clear to auscultation bilaterally and equal. No wheezes rales or rhonchi. HEART: Regular rate and rhythm without murmurs ABDOMEN: Soft, nontender, normoactive bowel sounds. No guarding, no rebound. No masses appreciated. EXTREMITIES: Normal range of motion, no pitting or edema. No cyanosis. NEUROLOGICAL: No focal neurological deficits. Moves all extremities spontaneously and on command. PSYCH: Normal mood, normal affect. SKIN: Warm, Dry, normal turgor, no rashes or lesions noted. Course - Re-evaluation Re-evalutation: 10/11/17 00:44 Presentation of asymptomatic hyperglycemia. There is no evidence of HHS or diabetic ketoacidosis on laboratories or based on clinical history. Patient's vitals are within normal limits. They deny any acute focal complaints. Treatment with insulin and IV fluids given here in the emergency department with appropriate response of the blood sugar. Patient does have primary care follow-up. Patient was instructed to continue taking their m home medications and advised they will likely need to increase dietary modification and may also need medication changes. Indications to return to emergency department as well as the importance of close outpatient follow-up were discussed at length. Patient verbalized understanding of the need for close follow-up and indications to return to the ED. - Vital Signs Vital signs: Temp Pulse Resp BP Pulse Ox 97.9 F 80 16 190/85 H 96 10/11/17 01:28 10/10/17 21:35 10/11/17 01:30 10/11/17 01:30 10/11/17 01:30 - Laboratory Result Diagrams: 10/10/17 23:59 Laboratory results interpreted by me: 10/10/17 10/10/17 10/10/17 23:44 23:59 23:59 Sodium 136.4 L Chloride 97 L BUN 24 H Glucose 495 H* Hemoglobin A1c % 10.0 H Urine Glucose (UA) >=500 H Discharge - Discharge Clinical Impression: Hyperglycemia, Blurry vision Condition: Good Disposition: HOME, SELF-CARE Additional Instructions: You need to followup urgently with your primary care doctor as your blood sugars were dangerously high today. You did not have any evidence of a dangerous condition associated with these blood sugars at this time. However, it is very important that you get your blood sugars under control. Please take all of your medications exactly as directed. You should avoid foods that are high in carbohydrates and sugary foods. Losing weight will also help to better control your blood sugars. Please return to emergency department immediately if you develop weakness, persistent vomiting, confusion, or any other symptoms that are concerning to you. Prescriptions: Insulin Glargine,Hum.rec.anlog [Lantus Insulin Inj 300 Unit/3 ml Pen] 60 unit SUBCUT QHS #30 ml
[2017-10-11 01:41] VITALS: BP 190/85
== END 2017-10-11 01:41 | disposition home or self-care (01) ==
LOC: ER 21:34
DX: E11.65 Type 2 diabetes mellitus with hyperglycemia (principal); H53.8 Other visual disturbances; I10 Essential (primary) hypertension; E66.01 Morbid (severe) obesity due to excess calories; F17.200 Nicotine dependence, unspecified, uncomplicated; Z88.6 Allergy status to analgesic agent; E78.00 Pure hypercholesterolemia, unspecified; Z79.4 Long term (current) use of insulin; Z95.1 Presence of aortocoronary bypass graft; Z90.49 Acquired absence of other specified parts of digestive tract; Z96.652 Presence of left artificial knee joint; Z98.51 Tubal ligation status
CPT/HCPCS: 99283; 96360; 36415; 82962; 80048; 81001; 83036; 82803; A9270; J7030; J1815

== ENCOUNTER 2017-11-24 08:53 | Emergency (ER) | payer MEDICARE, MEDICAID ==
[2017-11-24] MEDS ORDERED: ASPIRIN 325 MG TABLET PO ONE (10:14)
[2017-11-24] MEDS ORDERED: DIPHENHYDRAMINE HCL 50 MG/ML VIAL IV ONE (10:14)
[2017-11-24] MEDS ORDERED: PROCHLORPERAZINE EDISYLATE INJ 10 MG/2 ML VIAL IV ONE (10:14)
--- NOTE | 2017-11-24 10:28 | RADIOLOGY REPORT (SQ) ---
EXAM DESCRIPTION: CHEST SINGLE VIEW COMPLETED DATE/TIME: 11/24/2017 10:13 am REASON FOR STUDY: chest pain COMPARISON: 09/11/2017 EXAM PARAMETERS: NUMBER OF VIEWS: One view. TECHNIQUE: Single frontal radiographic view of the chest acquired. RADIATION DOSE: NA LIMITATIONS: None. FINDINGS: LUNGS AND PLEURA: Mild scarring in the left mid lung. Lungs appear free of active infiltr ates. Effusions. MEDIASTINUM AND HILAR STRUCTURES: No masses. Contour normal. HEART AND VASCULAR STRUCTURES: Mild cardiomegaly. No evidence failure. BONES: Severe scoliosis convex to the right. HARDWARE: None in the chest. OTHER: No other significant finding. IMPRESSION: Mild cardiomegaly without evidence of acute cardiopulmonary disease. TECHNICAL DOCUMENTATION: JOB ID: [id number] [employer]- All Rights Reserved
--- NOTE | 2017-11-24 10:33 | ER Document Report ---
ED General - General Mode of Arrival: Ambulatory Information source: Patient TRAVEL OUTSIDE OF THE [place] IN LAST 30 DAYS: No <PEARL WILKINS - Last Filed: 11/24/17 15:56> <ANJELPARISJUANCHO - Last Filed: 11/24/17 16:07> - General Chief Complaint: Headache Stated Complaint: HEADACHE Time Seen by Provider: 11/24/17 10:05 Notes: Patient is a 67 year old female presenting to the emergency department complaining of a headache with associated symptoms of shortness of breath, heart palpitations, photophobia, cough with sputum and nausea onset around 0130. Patient states when she woke up around 0130 her heart was beating "hard" and her head was pounding so she proceeded to drink some vinegar thinking her headache was due her blood pressure. Patient states the pain was intermittent until 0830 when she could not get her headache to go away. Patient also states her headache feels similar to her prior migraines. Patient denies rhinorrhea, earaches, vomiting, diarrhea or any recent trauma. Patient has a history of cardiac bypass and migraines. Patient states she takes 2 Aspirin x2 daily. Patients petrographer is Dr. Pacheco. (PEARL WILKINS) - Related Data Allergies/Adverse Reactions: codeine Adverse Reaction (Intermediate, Verified 11/24/17 09:22) Nausea Past Medical History - General Information source: Patient - Social History Smoking Status: Current Every Day Smoker Chew tobacco use (# tins/day): No Frequency of alcohol use: None Drug Abuse: None Family History: Reviewed & Not Pertinent Patient has suicidal ideation: No Patient has homicidal ideation: No - Past Medical History Cardiac Medical History: Reports: Hx Hypercholesterolemia, Hx Hypertension Neurological Medical History: Reports: Hx Migraine Endocrine Medical History: Reports: Hx Diabetes Mellitus Type 2 - lantus GI Medical History: Reports: Hx Gastroesophageal Reflux Disease Psychiatric Medical History: Reports: Hx Depression Past Surgical History: Reports: Hx Cardiac Surgery - triple bypass 2013, Hx Cholecystectomy, Hx Gynecologic Surgery - left oophorectomy, Hx Orthopedic Surgery - left knee replacement, Hx Tonsillectomy, Hx Tubal Ligation - Immunizations Hx Diphtheria, Pertussis, Tetanus Vaccination: No <PEARL WILKINS - Last Filed: 11/24/17 15:56> Review of Systems - Review of Systems Constitutional: No symptoms reported EENT: No symptoms reported Cardiovascular: See HPI, Chest pain, Palpitations, Heart racing Respiratory: See HPI, Cough, Short of breath Gastrointestinal: See HPI, Nausea. denies: Diarrhea, Vomiting Genitourinary: No symptoms reported Female Genitourinary: No symptoms reported Musculoskeletal: No symptoms reported Skin: No symptoms reported Hematologic/Lymphatic: No symptoms reported Neurological/Psychological: No symptoms reported -: Yes All other systems reviewed and negative <PEARL WILKINS - Last Filed: 11/24/17 15:56> Physical Exam <PEARL WILKINS - Last Filed: 11/24/17 15:56> <JUANCHO MENJIVAR - Last Filed: 11/24/17 16:07> - Vital signs Vitals: Temp Pulse Resp BP Pulse Ox 97.9 F 66 18 177/64 H 96 11/24/17 09:06 11/24/17 09:06 11/24/17 09:06 11/24/17 09:06 11/24/17 09:06 - Notes Notes: GENERAL: Alert, interacts well. No acute distress. HEAD: Normocephalic, atraumatic. EYES: Pupils equal, round, and reactive to light. Extraocular movements intact. ENT: Oral mucosa moist, tongue midline. NECK: Full range of motion. Supple. Trachea midline. LUNGS: Crackles at bases bilaterally, more so on left than right. No respiratory distress. HEART: Regular rate and rhythm. No murmurs, gallops, or rubs. ABDOMEN: Soft, non-tender. Non-distended. Bowel sounds present in all 4 quadrants. EXTREMITIES: Moves all 4 extremities spontaneously. No edema, radial and dorsalis pedis pulses 2/4 bilaterally. No cyanosis. NEUROLOGICAL: Alert and oriented x3. Normal speech. PSYCH: Normal affect, normal mood. SKIN: Warm, dry, normal turgor. No rashes or lesions noted. (PEARL WILKINS) Course - Laboratory Result Diagrams: 11/24/17 10:15 11/24/17 10:15 <PEARL WILKINS - Last Filed: 11/24/17 15:56> - Laboratory Result Diagrams: 11/24/17 10:15 11/24/17 10:15 <JUANCHO MENJIVAR - Last Filed: 11/24/17 16:07> - Re-evaluation Re-evalutation: 11/24/17 14:22 CBC unremarkable, CMP shows hyperglycemia with glucose of 233 consistent with her history of diabetes, cardiac enzymes negative 2, chest x-ray shows mild cardiomegaly without any evidence of acute pulmonary disease. Patient has been in no respiratory distress, headache and chest pressure have both resolved with Compazine and Benadryl. No evidence of acute coronary syndrome. Patient will be discharged home. (JUANCHO MENJIVAR) - Vital Signs Vital signs: Temp Pulse Resp BP Pulse Ox 97.4 F 68 18 143/65 H 94 11/24/17 14:44 11/24/17 14:44 11/24/17 14:44 11/24/17 14:44 11/24/17 14:44 - Laboratory Laboratory results interpreted by me: 11/24/17 10:15 Glucose 233 H - EKG Interpretation by Me Additional EKG results interpreted by me: 11/24/17 14:22 EKG shows sinus rhythm at a rate of 68, first-degree AV block, left anterior hemiblock, poor R-wave progression, no ST segment elevations or depressions per my interpretation. (JUANCHO MENJIVAR) Discharge <PEARL WILKINS - Last Filed: 11/24/17 15:56> <JUANCHO MENJIVAR - Last Filed: 11/24/17 16:07> - Discharge Clinical Impression: Palpitations Headache Qualifiers: Headache type: unspecified Headache chronicity pattern: acute headache Intractability: intractable Qualified Code(s): R51 - Headache Hyperglycemia due to type 2 diabetes mellitus Qualifiers: Diabetes mellitus jail insulin use: without jail use Qualified Code(s ): E11.65 - Type 2 diabetes mellitus with hyperglycemia Condition: Stable Disposition: HOME, SELF-CARE Instructions: Headache ([facility]) Referrals: GIN KAUR MD [COMMUNITY BASED STAFF] - Follow up in 1 week Scribe Attestation: 11/24/17 16:07 I personally performed the services described in the documentation, reviewed and edited the documentation which was dictated to the scribe in my presence, and it accurately records my words and actions. (JUANCHO MENJIVAR) Scribe Documentation - Scribe Written by Jennye:: Gaetano Farias, 11/24/2017 10:37 acting as scribe for :: Ghada <PEARL WILKINS - Last Filed: 11/24/17 15:56>
[2017-11-24 10:44] LABS: ABSOLUTE EOSINOPHILS # (AUTO) 0.3 10^3/uL (0.0-0.6); ABSOLUTE LYMPHOCYTES (AUTO) 2.8 10^3/uL (0.5-4.7); ABSOLUTE MONOCYTES (AUTO) 0.5 10^3/uL (0.1-1.4); ABSOLUTE NEUT (AUTO) 4.2 10^3/uL (1.7-8.2); BASOPHILS % (AUTO) 0.6 % (0-2); EOSINOPHILS % (AUTO) 3.9 % (0-6); HEMATOCRIT 37.7 % (36.0-47.0); HEMOGLOBIN 12.6 g/dL (12.0-15.5); LYMPHOCYTES % (AUTO) 35.1 % (13-45); MEAN CORPUSCULAR HEMOGLOBIN 28.8 pg (27.0-33.4); MEAN CORPUSCULAR HGB CONC 33.3 g/dL (32.0-36.0); MEAN CORPUSCULAR VOLUME 86 fl (80-97); MONOCYTES % (AUTO) 6.6 % (3-13); PLATELET COUNT 269 10^3/uL (150-450); RED BLOOD COUNT 4.37 10^6/uL (3.72-5.28); RED CELL DISTRIBUTION WIDTH 12.9 % (11.5-14.0); SEGMENTED NEUTROPHILS % (AUTO) 53.8 % (42-78); TOTAL CELLS COUNTED % (AUTO) 100 %; WHITE BLOOD COUNT 7.8 10^3/uL (4.0-10.5)
--- NOTE | 2017-11-24 10:59 | EKG REPORT ---
SEVERITY:- ABNORMAL ECG - SINUS RHYTHM PROBABLE LEFT ATRIAL ABNORMALITY LEFT ANTERIOR FASCICULAR BLOCK BORDERLINE R WAVE PROGRESSION, ANTERIOR LEADS : Confirmed by: Joselito Cano 24-Nov-2017 10:58:50
[2017-11-24 11:09] LABS: ALANINE AMINOTRANSFERASE 23 U/L (9-52); ALBUMIN 3.6 g/dL (3.5-5.0); ALKALINE PHOSPHATASE 102 U/L (38-126); ANION GAP 11 (5-19); ASPARTATE AMINO TRANSFERASE 19 U/L (14-36); BILIRUBIN,DIRECT 0.3 mg/dL (0.0-0.4); BILIRUBIN,TOTAL 0.3 mg/dL (0.2-1.3); BLOOD UREA NITROGEN 18 mg/dL (7-20); CALCIUM 9.9 mg/dL (8.4-10.2); CARBON DIOXIDE 28 mmol/L (22-30); CHLORIDE 101 mmol/L (98-107); CREATINE KINASE 61 U/L (30-135); GLUCOSE 233 mg/dL (75-110); POTASSIUM 4.2 mmol/L (3.6-5.0); SODIUM 139.8 mmol/L (137-145); TOTAL PROTEIN 6.3 g/dL (6.3-8.2)
[2017-11-24 11:18] LABS: CREATINE KINASE MB 0.75 ng/mL (<4.55); NT PRO BNP 286 pg/mL (5-900); TROPONIN I < 0.012 ng/mL
[2017-11-24 14:45] VITALS: BP 143/65
== END 2017-11-24 14:44 | disposition home or self-care (01) ==
LOC: ER 08:53
DX: E11.65 Type 2 diabetes mellitus with hyperglycemia (principal); R51 Headache; R00.2 Palpitations; R06.02 Shortness of breath; H53.149 Visual discomfort, unspecified; R05 Cough; R11.0 Nausea; F17.200 Nicotine dependence, unspecified, uncomplicated; E78.00 Pure hypercholesterolemia, unspecified; I10 Essential (primary) hypertension
CPT/HCPCS: 93005; 99284; 96374; 96375; 36415; 82553; 82550; 85025; 80053; 84484; 83880; 71045; 93010; A9270; J1200; J0780

== ENCOUNTER 2017-12-01 17:12 | Emergency (ER) | payer MEDICARE, MEDICAID ==
[2017-12-01] MEDS ORDERED: ASPIRIN 81 MG TABLET, CHEWABLE PO ONE (17:55)
--- NOTE | 2017-12-01 18:16 | RADIOLOGY REPORT (SQ) ---
EXAM DESCRIPTION: CHEST SINGLE VIEW COMPLETED DATE/TIME: 12/01/2017 6:09 pm REASON FOR STUDY: chest pain COMPARISON: 11/24/2017 EXAM PARAMETERS: NUMBER OF VIEWS: One view. TECHNIQUE: Single frontal radiographic view of the chest acquired. RADIATION DOSE: NA LIMITATIONS: None. FINDINGS: LUNGS AND PLEURA: No new opacities, masses or pneumothorax. No pleural effusion. MEDIASTINUM AND HILAR STRUCTURES: No masses. Contour normal. HEART AND VASCULAR STRUCTURES: Heart stable in size. Normal vasculature. BONES: No acute findings. HARDWARE: Stable. OTHER: No other significant finding. IMPRESSION: NO ACUTE RADIOGRAPHIC FINDING IN THE CHEST. NO SIGNIFICANT CHANGE FROM PRIOR STUDY. TECHNICAL DOCUMENTATION: JOB ID: [id number] [employer]- All Rights Reserved Reading location - IP/workstation name: [email or web address]
[2017-12-01 18:17] LABS: ABSOLUTE BASOPHILS # (AUTO) 0.1 10^3/uL (0.0-0.2); ABSOLUTE EOSINOPHILS # (AUTO) 0.4 10^3/uL (0.0-0.6); ABSOLUTE LYMPHOCYTES (AUTO) 2.9 10^3/uL (0.5-4.7); ABSOLUTE MONOCYTES (AUTO) 0.5 10^3/uL (0.1-1.4); ABSOLUTE NEUT (AUTO) 5.1 10^3/uL (1.7-8.2); BASOPHILS % (AUTO) 0.9 % (0-2); HEMATOCRIT 37.2 % (36.0-47.0); HEMOGLOBIN 12.6 g/dL (12.0-15.5); LYMPHOCYTES % (AUTO) 32.1 % (13-45); MEAN CORPUSCULAR HEMOGLOBIN 28.9 pg (27.0-33.4); MEAN CORPUSCULAR HGB CONC 33.7 g/dL (32.0-36.0); MEAN CORPUSCULAR VOLUME 86 fl (80-97); MONOCYTES % (AUTO) 5.9 % (3-13); PLATELET COUNT 272 10^3/uL (150-450); RED BLOOD COUNT 4.34 10^6/uL (3.72-5.28); RED CELL DISTRIBUTION WIDTH 12.7 % (11.5-14.0); SEGMENTED NEUTROPHILS % (AUTO) 57.1 % (42-78); TOTAL CELLS COUNTED % (AUTO) 100 %
[2017-12-01 18:23] LABS: ALANINE AMINOTRANSFERASE 27 U/L (9-52); ALBUMIN 3.9 g/dL (3.5-5.0); ALKALINE PHOSPHATASE 137 U/L (38-126); ANION GAP 12 (5-19); ASPARTATE AMINO TRANSFERASE 22 U/L (14-36); BILIRUBIN,DIRECT 0.3 mg/dL (0.0-0.4); BILIRUBIN,TOTAL 0.3 mg/dL (0.2-1.3); BLOOD UREA NITROGEN 20 mg/dL (7-20); CALCIUM 9.8 mg/dL (8.4-10.2); CARBON DIOXIDE 27 mmol/L (22-30); CHLORIDE 98 mmol/L (98-107); CREATINE KINASE 70 U/L (30-135); GLUCOSE 316 mg/dL (75-110); POTASSIUM 4.2 mmol/L (3.6-5.0); SODIUM 137.3 mmol/L (137-145); TOTAL PROTEIN 7.1 g/dL (6.3-8.2)
--- NOTE | 2017-12-01 18:23 | ER Document Report ---
ED Cardiac - General Chief Complaint: Chest Pain Stated Complaint: CHEST PAIN Time Seen by Provider: 12/01/17 17:55 Notes: The patient is a 67-year-old female, past medical history chronic angina, CAD, presents after a brief episode of upper chest pain feels similar to her prior episodes. She is running out of her nitro patches and is requesting a refill. Patient already received aspirin prior to arrival. She is also having edema in her bilateral legs and said that Lasix has helped her in the past. She denies current chest pain, nausea, vomiting, shortness of breath, hemoptysis, numbness or tingling. TRAVEL OUTSIDE OF THE [place] IN LAST 30 DAYS: No - Related Data Allergies/Adverse Reactions: codeine Adverse Reaction (Intermediate, Verified 11/24/17 09:22) Nausea Past Medical History - General Information source: Patient - Social History Smoking Status: Unknown if Ever Smoked Family History: Reviewed & Not Pertinent - Past Medical History Cardiac Medical History: Reports: Hx Hypercholesterolemia, Hx Hypertension Neurological Medical History: Reports: Hx Migraine Endocrine Medical History: Reports: Hx Diabetes Mellitus Type 2 - lantus Renal/ Medical History: Denies: Hx Peritoneal Dialysis GI Medical History: Reports: Hx Gastroesophageal Reflux Disease Psychiatric Medical History: Reports: Hx Depression Past Surgical History: Reports: Hx Cardiac Surgery - triple bypass 2014, Hx Cholecystectomy, Hx Gynecologic Surgery - left oophorectomy, Hx Orthopedic Surgery - left knee replacement, Hx Tonsillectomy, Hx Tubal Ligation - Immunizations Hx Diphtheria, Pertussis, Tetanus Vaccination: No Review of Systems - Review of Systems Notes: REVIEW OF SYSTEMS: CONSTITUTIONAL: -fevers, -chills EENT: -eye pain, -difficulty swallowing, -nasal congestion CARDIOVASCULAR: +chest pain, -syncope. RESPIRATORY: -cough, -SOB GASTROINTESTINAL: -abdominal pain, -nausea, -vomiting, -diarrhea GENITOURINARY: -dysuria, -hematuria MUSCULOSKELETAL: -back pain, -neck pain SKIN: -rash or skin lesions. HEMATOLOGIC: -easy bruising or bleeding. LYMPHATIC: -swollen, enlarged glands. NEUROLOGICAL: -altered mental status or loss of consciousness, -headache, - neurologic symptoms PSYCHIATRIC: -anxiety, -depression. ALL OTHER SYSTEMS REVIEWED AND NEGATIVE. Physical Exam - Vital signs Vitals: BP Pulse Ox 138/71 H 98 12/01/17 17:12 12/01/17 17:12 - Notes Notes: PHYSICAL EXAMINATION: GENERAL: Well-appearing, well-nourished and in no acute distress. HEAD: Atraumatic, normocephalic. EYES: Pupils equal round and reactive to light, extraocular movements intact, sclera anicteric, conjunctiva are normal. ENT: nares patent, oropharynx clear without exudates. Moist mucous membranes. NECK: Normal range of motion, supple without lymphadenopathy LUNGS: Breath sounds clear to auscultation bilaterally and equal. No wheezes rales or rhonchi. HEART: Regular rate and rhythm without murmurs ABDOMEN: Soft, nontender, normoactive bowel sounds. No guarding, no rebound. No masses appreciated. EXTREMITIES: Normal range of motion, 2+pitting edema in B/L lower extremities. No cyanosis. NEUROLOGICAL: Cranial nerves grossly intact. Normal speech, normal gait. Normal sensory and motor exams. PSYCH: Normal mood, normal affect. SKIN: Warm, Dry, normal turgor, no rashes or lesions noted. Course - Re-evaluation Re-evalutation: Patient with her usual chest pain that resolved after taking nitro. She is requesting a refill of her nitro patches and some Lasix to help with her peripheral edema. She has an appointment with her primary care physician and lead investigator soon. 2 troponins and EKG do not show any evidence of ischemia. Patient has had evaluation for this chest pain in the past by her lead investigator was told that it was angina and there is no need for a stent. Will provide her with a few days of Lasix to help with her increased peripheral edema. Symptoms atypical for PE or aortic dissection at this time. Given very strict return precautions and she understands. - Vital Signs Vital signs: Temp Pulse Resp BP Pulse Ox 11 L 169/75 H 96 12/01/17 21:01 12/01/17 21:01 12/01/17 21:01 - Laboratory Result Diagrams: 12/01/17 16:35 12/01/17 16:35 Laboratory results interpreted by me: 12/01/17 16:35 Glucose 316 H Alkaline Phosphatase 137 H - Diagnostic Test Radiology reviewed: Image reviewed, Reports reviewed Radiology results interpreted by me: CXR: NAD - EKG Interpretation by Me EKG shows normal: Sinus rhythm, [place], Intervals, QRS Complexes, ST-T Waves Rate: Normal When compared to previous EKG there are: No significant change Discharge - Discharge Clinical Impression: Peripheral edema Chest pain Qualifiers: Chest pain type: unspecified Qualified Code(s): R07.9 - Chest pain, unspecified Condition: Stable Disposition: HOME, SELF-CARE Additional Instructions: CHEST PAIN OF UNCLEAR CAUSE: The exact cause of your chest pain isn't clear. Fortunately, there is no evidence of a dangerous medical condition. Further testing may be required to find the source of the pain. Most often, we find that this pain is coming from the chest wall -- the muscles or rib joints in the chest. But chest pain can come from the lung and lung lining, the esophagus, the heart valves or heart lining, and even the stomach or gallbladder. Rest. Eat lightly until the pain is gone. We may prescribe medicine for pain and inflammation. You should call the physician immediately if the pain radiates to the shoulder, jaw or arms; if you start to run a fever or develop a cough; or if you develop shortness of breath, or other new or alarming symptoms. NORMAL EXAM AND WORKUP: At this time, your examination and workup show no significant abnormality. No significant abnormal physical findings were noted. All laboratory, EKG, and imaging (x-ray, CT scans, ultrasound) studies that were ordered show no significant abnormality. Although your examination and all studies that were ordered showed no significant abnormal finding, there are no examinations and no studies that are 100% accurate. There is always the possibility that some abnormality could exist and not be detected with physical examination or within the limits and capabilities of laboratory and other studies. You should return or follow up as you were instructed on your visit today for further evaluation if your symptoms do not resolve. ANGINA EPISODE: Your physician has diagnosed the pain you experienced as an episode of angina. Angina occurs when a portion of the heart muscle temporarily lacks oxygen. It does not cause any permanent heart damage, but serves as a warning. Hospitalization is not necessary now. Evaluation of your cardiac condition , and medical therapy for angina will be necessary. It's important you be sure to keep all appointments and take medication exactly as prescribed. Angina is usually treated with a type of "nitrate" medication. This is available as ointment, pills, or sublingual (under the tongue) tablets. Depending on your clinical situation, other medications may be added to help control angina. These may include beta blockers or calcium blockers. If episodes of angina are occurring with increased frequency, or if chest pain lasts longer than 15 minutes or does not respond to nitroglycerin, you must seek emergency medical care immediately. ASPIRIN: Aspirin has been shown to have a beneficial effect on blood circulation by reducing the clotting effect of platelets in the blood. These beneficial effects can be achieved by taking just a single baby (81 mg) aspirin a day. It is recommended that any person over the age of forty take a single baby aspirin every day for heart and brain circulation, unless you are allergic to aspirin or have some significant bleeding disorder. It is strongly recommended that people who have proven cardiac or blood circulation disturbances should take a baby aspirin every day. NITRATES: Nitroglycerin and related longer-acting nitrate medications are used to prevent or treat attacks of angina. These medicines dilate blood vessels, decreasing the work of the heart, and improving its supply of oxygen. Many different forms are available, including sublingual tablets (used under the tongue), sprays, skin patches, and long-acting pills. If the particular form of medication you have been given is not working well for you, contact your doctor. Long-acting forms: Take exactly as prescribed. Sudden stopping of medication can provoke increased attacks. Sublingual tabs or spray: A headache will usually occur with use. Sit or lie while waiting for the pain to go away. If angina doesn't respond to three doses (five minutes apart), call for emergency assistance. FOLLOW-UP CARE: If you have been referred to a physician for follow-up care, call the physician s office for an appointment as you were instructed or within the next two days. If you experience worsening or a significant change in your symptoms, notify the physician immediately or return to the Emergency Department at any time for re-evaluation. Prescriptions: Furosemide [Lasix 40 mg Tablet] 40 mg PO QAM #5 tablet Nitroglycerin [Nitro-Dur 10 mg (0.4MG/Hr) Transdermal Patch] 1 patch TD QAM #30 patch.[id number] Referrals: JUANCARLOS POE MD [ACTIVE STAFF] - Follow up as needed
--- NOTE | 2017-12-01 19:01 | EKG REPORT ---
SEVERITY:- ABNORMAL ECG - SINUS RHYTHM PROBABLE LEFT ATRIAL ABNORMALITY LEFT ANTERIOR FASCICULAR BLOCK POOR R WAVE PROGRESSION. : Confirmed by: Fabrice Martinez MD 01-Dec-2017 19:00:25
[2017-12-01 21:34] VITALS: BP 169/75
== END 2017-12-01 21:42 | disposition home or self-care (01) ==
LOC: ER 17:12
DX: R07.9 Chest pain, unspecified (principal); R60.0 Localized edema; I25.10 Atherosclerotic heart disease of native coronary artery without angina pectoris
CPT/HCPCS: 36415; 71045; 80053; 82550; 84484; 85025; 93005; 93010; 99285

== ENCOUNTER 2018-07-14 22:03 | Emergency (ER) | payer MEDICARE, MEDICAID ==
[2018-07-14 22:50] LABS: ABSOLUTE BASOPHILS # (AUTO) 0.1 10^3/uL (0.0-0.2); ABSOLUTE EOSINOPHILS # (AUTO) 0.3 10^3/uL (0.0-0.6); ABSOLUTE LYMPHOCYTES (AUTO) 3.3 10^3/uL (0.5-4.7); ABSOLUTE MONOCYTES (AUTO) 0.7 10^3/uL (0.1-1.4); ABSOLUTE NEUT (AUTO) 7.1 10^3/uL (1.7-8.2); BASOPHILS % (AUTO) 0.6 % (0-2); EOSINOPHILS % (AUTO) 2.3 % (0-6); HEMATOCRIT 39.3 % (36.0-47.0); HEMOGLOBIN 13.3 g/dL (12.0-15.5); MEAN CORPUSCULAR HEMOGLOBIN 28.5 pg (27.0-33.4); MEAN CORPUSCULAR HGB CONC 33.8 g/dL (32.0-36.0); MEAN CORPUSCULAR VOLUME 84 fl (80-97); MONOCYTES % (AUTO) 6.1 % (3-13); PLATELET COUNT 283 10^3/uL (150-450); RED BLOOD COUNT 4.66 10^6/uL (3.72-5.28); RED CELL DISTRIBUTION WIDTH 13.6 % (11.5-14.0); TOTAL CELLS COUNTED % (AUTO) 100 %; WHITE BLOOD COUNT 11.4 10^3/uL (4.0-10.5)
[2018-07-14] MEDS ORDERED: METOCLOPRAMIDE HCL INJ/PF 10 MG/2 ML SDV IV ONE (22:55)
[2018-07-14] MEDS ORDERED: NORMAL SALINE 1000 ML 1,000 ML IV ONE (22:55)
[2018-07-14 23:07] LABS: ALANINE AMINOTRANSFERASE 21 U/L (9-52); ALBUMIN 3.7 g/dL (3.5-5.0); ALKALINE PHOSPHATASE 112 U/L (38-126); ANION GAP 10 (5-19); ASPARTATE AMINO TRANSFERASE 14 U/L (14-36); BILIRUBIN,DIRECT 0.4 mg/dL (0.0-0.4); BILIRUBIN,TOTAL 0.4 mg/dL (0.2-1.3); BLOOD UREA NITROGEN 38 mg/dL (7-20); CALCIUM 9.7 mg/dL (8.4-10.2); CARBON DIOXIDE 28 mmol/L (22-30); CHLORIDE 96 mmol/L (98-107); GLUCOSE 366 mg/dL (75-110); POTASSIUM 3.9 mmol/L (3.6-5.0); SODIUM 133.7 mmol/L (137-145); TOTAL PROTEIN 6.6 g/dL (6.3-8.2)
[2018-07-14 23:09] LABS: APPEARANCE,URINE CLEAR; BILIRUBIN,URINE NEGATIVE (NEGATIVE); COLOR,URINE YELLOW; GLUCOSE, URINE >=500 mg/dL (NEGATIVE); KETONES,URINE NEGATIVE (NEGATIVE); LEUKOCYTE ESTERASE,URINE NEGATIVE (NEGATIVE); NITRITE,URINE NEGATIVE (NEGATIVE); PROTEIN,URINE NEGATIVE (NEGATIVE); URINE SPECIFIC GRAVITY 1.023; UROBILINOGEN,URINE NEGATIVE mg/dL (<2.0)
[2018-07-14] MEDS ORDERED: INSULIN REG, HUMAN 100 UNIT/ML 3 ML VIAL (PYX) SUBCUT ONE (23:36)
--- NOTE | 2018-07-15 00:28 | ER Document Report ---
ED General - General Chief Complaint: High Blood Sugar Stated Complaint: DIZZINESS Time Seen by Provider: 07/14/18 22:29 Notes: Patient is a 67-year-old female with past medical history of hypertension, hyperlipidemia, type 2 diabetes, morbid obesity, who presents with concerns of lightheadedness, weakness and hyperglycemia. The patient reports that just prior to arrival she began to feel lightheaded like she was about to pass out. States she had felt generally fatigued and weak all day. She checked her blood sugar and found it to be over 400 propping her to come to the emergency department. She has a history of similar symptoms in the past when she has been hyperglycemic. She has not contacted her primary care doctor regarding today's concerns. She has been taking all medications as directed. She denies dietary indiscretions. She denies any chest pain, shortness of breath, abdominal pain, vomiting, diarrhea, headache or neck pain. She states her symptoms have overall been improving since onset although no specific action triggered this improvement. Nothing worsened the symptoms were present. TRAVEL OUTSIDE OF THE [place] IN LAST 30 DAYS: No - Related Data Allergies/Adverse Reactions: codeine Adverse Reaction (Intermediate, Verified 11/24/17 09:22) Nausea Past Medical History - General Information source: Patient - Social History Smoking Status: Current Every Day Smoker Chew tobacco use (# tins/day): No Frequency of alcohol use: None Drug Abuse: None Lives with: Spouse/Significant other Family History: Reviewed & Not Pertinent Patient has suicidal ideation: No Patient has homicidal ideation: No - Past Medical History Cardiac Medical History: Reports: Hx Hypercholesterolemia, Hx Hypertension Neurological Medical History: Reports: Hx Migraine Endocrine Medical History: Reports: Hx Diabetes Mellitus Type 2 - lantus Renal/ Medical History: Denies: Hx Peritoneal Dialysis GI Medical History: Reports: Hx Gastroesophageal Reflux Disease Psychiatric Medical History: Reports: Hx Depression Past Surgical History: Reports: Hx Cardiac Surgery - triple bypass 2014, Hx Cholecystectomy, Hx Gynecologic Surgery - left oophorectomy, Hx Orthopedic Surgery - left knee replacement, Hx Tonsillectomy, Hx Tubal Ligation - Immunizations Hx Diphtheria, Pertussis, Tetanus Vaccination: No Review of Systems - Review of Systems Notes: Constitutional: Negative for fever. HENT: Negative for sore throat. Eyes: Negative for visual changes. Cardiovascular: Negative for chest pain. Respiratory: Negative for shortness of breath. Gastrointestinal: Negative for abdominal pain, vomiting or diarrhea. Genitourinary: Negative for dysuria. Musculoskeletal: Negative for back pain. Skin: Negative for rash. Neurological: Negative for headaches, weakness or numbness. 10 point ROS negative except as marked above and in HPI. Physical Exam - Vital signs Vitals: Temp Pulse Resp BP Pulse Ox 97.2 F 90 24 H 151/62 H 94 07/14/18 22:05 07/14/18 22:05 07/14/18 22:05 07/14/18 22:05 07/14/18 22:05 Interpretation: Hypertensive Notes: PHYSICAL EXAMINATION: GENERAL: Well-appearing, well-nourished and in no acute distress. HEAD: Atraumatic, normocephalic. EYES: Pupils equal round and reactive to light, extraocular movements intact, sclera anicteric, conjunctiva are normal. ENT: nares patent, oropharynx clear without exudates. Moderately dry mucous membranes. NECK: Normal range of motion, supple without lymphadenopathy LUNGS: Breath sounds clear to auscultation bilaterally and equal. No wheezes rales or rhonchi. HEART: Regular rate and rhythm without murmurs ABDOMEN: Soft, nontender, normoactive bowel sounds. No guarding, no rebound. No masses appreciated. EXTREMITIES: Normal range of motion, no pitting or edema. No cyanosis. NEUROLOGICAL: Face symmetric. Tongue protrudes midline. Extraocular motions intact. Pupils are 2 mm and equally reactive. Normal speech, normal gait. 5 out of 5 strength in both the distal and proximal upper and lower extremities bilaterally. Sensation is grossly intact throughout. Finger to nose testing normal. Pronator drift normal. PSYCH: Normal mood, normal affect. SKIN: Warm, Dry, normal turgor, no rashes or lesions noted. Course - Re-evaluation Re-evalutation: 07/15/18 00:26 Presentation of asymptomatic hyperglycemia with associated dehydration, lightheadedness, possible near syncope. There is no evidence of HHS or diabetic ketoacidosis on laboratories or based on clinical history. Patient's vitals are within normal limits. Treatment with insulin and IV fluids given here in the emergency department with appropriate response of the blood sugar. Patient does have primary care follow-up. I have strongly encouraged the patient to follow-up with her primary doctor and follow through on a endocrinology referral has been placed. EKG unremarkable. I do not suspect a life-threatening etiology of the patient's presentation today. She has a history of similar symptoms when she has become hyperglycemic in the past. No evidence of anemia, significantly short of reality, EKG without dysrhythmia or evidence of ST changes. Patient denies any chest pain or shortness of breath that would indicate a possible ACS event. At this time will discharge with return precautions and follow-up recommendations. Verbal discharge instructions given a the bedside and opportunity for questions given. Medication warnings reviewed. Patient is in agreement with this plan and has verbalized understanding of return precautions and the need for primary care follow-up in the next 24-72 hours. - Vital Signs Vital signs: Temp Pulse Resp BP Pulse Ox 97.7 F 89 18 133/70 H 98 07/15/18 01:02 07/15/18 01:02 07/15/18 01:02 07/15/18 01:02 07/15/18 01:02 - Laboratory Result Diagrams: 07/14/18 22:40 07/14/18 22:40 Laboratory results interpreted by me: 07/14/18 07/14/18 07/14/18 22:16 22:40 22:40 WBC 11.4 H Sodium 133.7 L Chloride 96 L BUN 38 H Est GFR ( Amer) 59 L Est GFR (Non-Af Amer) 49 L Glucose 366 H POC Glucose 366 H Urine Glucose (UA) 07/14/18 07/14/18 22:43 23:31 WBC Sodium Chloride BUN Est GFR ( Amer) Est GFR (Non-Af Amer) Glucose POC Glucose 319 H Urine Glucose (UA) >=500 H - EKG Interpretation by Me Additional EKG results interpreted by me: 07/15/18 02:36 Sinus rhythm. Rate 78. No ST elevations or depressions. QTC is 470. Discharge - Discharge Clinical Impression: Hyperglycemia, Near syncope, Dehydration Condition: Good Disposition: HOME, SELF-CARE Additional Instructions: You need to followup urgently with your primary care doctor as your blood sugars were dangerously high today. You did not have any evidence of a dangerous condition associated with these blood sugars at this time. However, it is very important that you get your blood sugars under control. Please take all of your medications exactly as directed. You should avoid foods that are high in carbohydrates and sugary foods. Losing weight will also help to better control your blood sugars. Please return to emergency department immediately if you develop weakness, persistent vomiting, confusion, or any other symptoms that are concerning to you. Referrals: ROBERTA BRAVO PA-C [Primary Care Provider] - Follow up as needed
[2018-07-15 01:04] VITALS: BP 133/70
--- NOTE | 2018-07-15 18:50 | EKG REPORT ---
SEVERITY:- ABNORMAL ECG - SINUS RHYTHM PROBABLE LEFT ATRIAL ABNORMALITY LEFT ANTERIOR FASCICULAR BLOCK NONSPECIFIC T ABNORMALITIES, ANT-LAT LEADS : Confirmed by: Joselito Cano 15-Jul-2018 18:49:20
== END 2018-07-15 01:04 | disposition home or self-care (01) ==
LOC: ER 22:03
DX: R42 Dizziness and giddiness (principal); E86.0 Dehydration; E11.65 Type 2 diabetes mellitus with hyperglycemia; R53.1 Weakness; I10 Essential (primary) hypertension; E78.5 Hyperlipidemia, unspecified; E66.01 Morbid (severe) obesity due to excess calories; Z79.899 Other long term (current) drug therapy; F17.200 Nicotine dependence, unspecified, uncomplicated; Z79.4 Long term (current) use of insulin
CPT/HCPCS: 93005; 99284; 96361; 96374; 36415; 82962; 85025; 80053; 81001; 93010; J2765; A9270; J7030; J1815

== ENCOUNTER 2018-10-16 06:25 | Emergency (ER) | payer MEDICARE, MEDICAID ==
[2018-10-16] MEDS ORDERED: ASPIRIN 81 MG TABLET, CHEWABLE PO ONE (06:26)
[2018-10-16 06:51] LABS: ABSOLUTE BASOPHILS # (AUTO) 0.1 10^3/uL (0.0-0.2); ABSOLUTE EOSINOPHILS # (AUTO) 0.4 10^3/uL (0.0-0.6); ABSOLUTE LYMPHOCYTES (AUTO) 4.6 10^3/uL (0.5-4.7); ABSOLUTE MONOCYTES (AUTO) 0.9 10^3/uL (0.1-1.4); ABSOLUTE NEUT (AUTO) 9.5 10^3/uL (1.7-8.2); BASOPHILS % (AUTO) 0.9 % (0-2); EOSINOPHILS % (AUTO) 2.5 % (0-6); HEMATOCRIT 41.4 % (36.0-47.0); HEMOGLOBIN 13.8 g/dL (12.0-15.5); LYMPHOCYTES % (AUTO) 29.6 % (13-45); MEAN CORPUSCULAR HEMOGLOBIN 28.2 pg (27.0-33.4); MEAN CORPUSCULAR HGB CONC 33.4 g/dL (32.0-36.0); MEAN CORPUSCULAR VOLUME 85 fl (80-97); PLATELET COUNT 401 10^3/uL (150-450); RED CELL DISTRIBUTION WIDTH 13.3 % (11.5-14.0); TOTAL CELLS COUNTED % (AUTO) 100 %; WHITE BLOOD COUNT 15.6 10^3/uL (4.0-10.5)
--- NOTE | 2018-10-16 06:54 | ER Document Report ---
ED General - General Chief Complaint: Palpitations Stated Complaint: CHEST PAIN Time Seen by Provider: 10/16/18 06:54 Notes: Patient is a 68-year-old female with CAD and hypertension hyperlipidemia and diabetes that presents to the emergency department for chief complaint of palpitations and chest discomfort. Patient states that this morning she felt palpitations, and then shortly after started feeling mildly short of breath with associated chest discomfort she described as midsternal, per EMS she was in atrial fibrillation with rapid ventricular response, which she was upon arrival, but spontaneously converted back to sinus rhythm. She denies history of atrial fibrillation. She is feeling better now, and her pain is essentially resolved. At the time it started she described it as an aching and constant sensation does scribed as a 4 out of 10 in severity. Denies any vomiting, diaphoresis or any other complaints at this time. Past Medical History: CAD, hypertension, diabetes mellitus, hyperlipidemia Past Surgical History: CABG x3 Social History: Denies tobacco, alcohol or drug use. 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 REVIEW OF SYSTEMS: Other than noted above, the 12 point review of systems was reviewed with the patient and were negative, all pertinent findings are included in the HPI. PHYSICAL EXAMINATION: Vital signs reviewed, nursing noted reviewed. GENERAL: Well-appearing, well-nourished and in no acute distress. HEAD: Atraumatic, normocephalic. EYES: Eyes appear normal, extraocular movements intact, sclera anicteric, conjunctiva are normal. ENT: nares patent, oropharynx clear without exudates. Moist mucous membranes. NECK: Normal range of motion, supple without lymphadenopathy LUNGS: Breath sounds clear to auscultation bilaterally and equal. No wheezes rales or rhonchi. HEART: Regular rate and rhythm without murmurs ABDOMEN: Soft, nontender, normoactive bowel sounds. No rebound, guarding, or rigidity. No masses appreciated. EXTREMITIES: Nontender, good range of motion, no pitting or edema. NEUROLOGICAL: No focal neurological deficits. Moves all extremities spontaneou sly Motor and sensory grossly intact on exam. PSYCH: Normal mood, normal affect. SKIN: Warm, Dry, normal turgor, no rashes or lesions noted on exposed skin TRAVEL OUTSIDE OF THE [place] IN LAST 30 DAYS: No - Related Data Allergies/Adverse Reactions: codeine Adverse Reaction (Intermediate, Verified 11/24/17 09:22) Nausea Past Medical History - Social History Smoking Status: Never Smoker Family History: Reviewed & Not Pertinent - Past Medical History Cardiac Medical History: Reports: Hx Hypercholesterolemia, Hx Hypertension Neurological Medical History: Reports: Hx Migraine Endocrine Medical History: Reports: Hx Diabetes Mellitus Type 2 - lantus Renal/ Medical History: Denies: Hx Peritoneal Dialysis GI Medical History: Reports: Hx Gastroesophageal Reflux Disease Psychiatric Medical History: Reports: Hx Depression Past Surgical History: Reports: Hx Cardiac Surgery - triple bypass 2013, Hx Cholecystectomy, Hx Gynecologic Surgery - left oophorectomy, Hx Orthopedic Surgery - left knee replacement, Hx Tonsillectomy, Hx Tubal Ligation - Immunizations Hx Diphtheria, Pertussis, Tetanus Vaccination: No Physical Exam - Vital signs Vitals: Temp Pulse Resp BP Pulse Ox 98.4 F 130 H 20 146/91 H 96 10/16/18 06:25 10/16/18 06:25 10/16/18 06:25 10/16/18 06:25 10/16/18 06:25 Course - Re-evaluation Re-evalutation: Patient seen and examined vital signs reviewed. Laboratory data and imaging were ordered as appropriate for the patient's presenting symptoms and complaint, with consideration of any critical or life threatening conditions that may be associated with their obtained history and exam as noted above. Patient was treated with oral metoprolol, and Keflex, after UA demonstrating UTI, the patient was in atrial fibrillation with rapid ventricular response upon initial arrival, but then spontaneously converted to normal sinus rhythm, she does take metoprolol at home, this was just resumed, I checked a UA on her, she did have a leukocytosis as well, possibly related to stress, but she does have a UTI with nitrites positive. Will send for culture, and start on Keflex. Results were reviewed when available and demonstrated negative troponin, EKG initially was atrial fibrillation with rapid ventricular response, repeat demonstrated normal sinus rhythm, with no evidence of ischemia. On my repeat evaluation the patient had no further chest discomfort, she is feeling quite well, I did review this case, with her preschool special education teacher, and planned on repeating troponin, and if negative have him follow-up with her, he gave me his cell phone to give to the patient, and recommended starting her on Eliquis, for paroxysmal atrial fibrillation, it is possible that this is secondary and triggered by the UTI, however patient's chads 2 Vasc score is high secondary to her comorbidities, anticoagulation is recommended for paroxysmal atrial fibrillation. Risks and benefits of this medication with Eliquis were discussed with the patient, and she was agreeable to start this medication today. The patient was re-evaluated and was stable Evaluation was most consistent with atrial fibrillation with RVR, uti Results were discussed with the patient at this point, after careful consideration I feel that that patient can be discharged from the emergency department, the patient was educated treatments and reasons to return to the emergency department based on their presumed diagnosis as noted above, they were advised to followup with a primary care physician in 2-3 days. Patient was agreeable to plan of care. *Note is created using voice recognition software and may contain spelling, syntax or grammatical errors. Laboratory 10/16/18 10/16/18 10/16/18 06:42 06:42 06:42 WBC 15.6 H RBC 4.90 Hgb 13.8 Hct 41.4 MCV 85 MCH 28.2 MCHC 33.4 RDW 13.3 Plt Count 401 Seg Neutrophils % 61.0 Lymphocytes % 29.6 Monocytes % 6.0 Eosinophils % 2.5 Basophils % 0.9 Absolute Neutrophils 9.5 H Absolute Lymphocytes 4.6 Absolute Monocytes 0.9 Absolute Eosinophils 0.4 Absolute Basophils 0.1 PT 12.0 INR 0.85 Sodium 137.7 Potassium 4.4 Chloride 99 Carbon Dioxide 30 Anion Gap 9 BUN 26 H Creatinine 0.59 Est GFR ( Amer) > 60 Est GFR (Non-Af Amer) > 60 Glucose 251 H Calcium 10.1 Total Bilirubin 0.5 Direct Bilirubin 0.4 Neonat Total Bilirubin Not Reportable Neonat Direct Bilirubin Not Reportable Neonat Indirect Bili Not Reportable AST 19 ALT 13 Alkaline Phosphatase 147 H Creatine Kinase 50 CK-MB (CK-2) Troponin I Total Protein 7.6 Albumin 4.0 Urine Color Urine Appearance Urine pH Ur Specific [place] Urine Protein Urine Glucose (UA) Urine Ketones Urine Blood Urine Nitrite Urine Bilirubin Urine Urobilinogen Ur Leukocyte Esterase Urine WBC (Auto) Urine RBC (Auto) Urine Bacteria (Auto) Squamous Epi Cells Auto Urine Mucus (Auto) Urine Ascorbic Acid 10/16/18 10/16/18 06:42 08:45 WBC RBC Hgb Hct MCV MCH MCHC RDW Plt Count Seg Neutrophils % Lymphocytes % Monocytes % Eosinophils % Basophils % Absolute Neutrophils Absolute Lymphocytes Absolute Monocytes Absolute Eosinophils Absolute Basophils PT INR Sodium Potassium Chloride Carbon Dioxide Anion Gap BUN Creatinine Est GFR ( Amer) Est GFR (Non-Af Amer) Glucose Calcium Total Bilirubin Direct Bilirubin Neonat Total Bilirubin Neonat Direct Bilirubin Neonat Indirect Bili AST ALT Alkaline Phosphatase Creatine Kinase CK-MB (CK-2) 0.69 Troponin I < 0.012 Total Protein Albumin Urine Color YELLOW Urine Appearance SLIGHTLY-CLOUDY Urine pH 6.0 Ur Specific [place] 1.017 Urine Protein NEGATIVE Urine Glucose (UA) 150 H Urine Ketones NEGATIVE Urine Blood NEGATIVE Urine Nitrite POSITIVE H Urine Bilirubin NEGATIVE Urine Urobilinogen NEGATIVE Ur Leukocyte Esterase MODERATE H Urine WBC (Auto) 124 Urine RBC (Auto) 3 Urine Bacteria (Auto) 3+ Squamous Epi Cells Auto 3 Urine Mucus (Auto) RARE Urine Ascorbic Acid NEGATIVE Chest X-Ray 10/16/18 06:26 IMPRESSION: 1. No acute pneumonic process identified. Cardiomegaly. No significant interval change. - Vital Signs Vital signs: Temp Pulse Resp BP Pulse Ox 98.4 F 130 H 19 164/62 H 97 10/16/18 06:25 10/16/18 06:25 10/16/18 10:38 10/16/18 10:38 10/16/18 10:38 - Laboratory Result Diagrams: 10/16/18 06:42 10/16/18 06:42 Laboratory results interpreted by me: 10/16/18 10/16/18 10/16/18 06:42 06:42 08:45 WBC 15.6 H Absolute Neutrophils 9.5 H BUN 26 H Glucose 251 H Alkaline Phosphatase 147 H Urine Glucose (UA) 150 H Urine Nitrite POSITIVE H Ur Leukocyte Esterase MODERATE H - EKG Interpretation by Me Additional EKG results interpreted by me: EKG demonstrates atrial fibrillation with a ventricular rate of 125 bpm, left axis deviation, QTC 491 ms, no evidence of acute ischemia on this EKG, this is compared with prior EKG from 07/15/2018, where the atrial fibrillation appears to be new. Repeat EKG demonstrates sinus rhythm with a ventricular rate of 68 bpm, left axis deviation, normal intervals, no evidence of acute ischemia on this EKG. Discharge - Discharge Clinical Impression: Atrial fibrillation with RVR UTI (urinary tract infection) Qualifiers: Urinary tract infection type: site unspecified Hematuria presence: without hematuria Qualified Code(s): N39.0 - Urinary tract infection, site not specified Condition: Stable Disposition: HOME, SELF-CARE Instructions: Atrial Fibrillation ([facility]), Urinary Tract Infection ([facility]) Additional Instructions: Please follow-up with your preschool special education teacher Dr. Pacheco, he wants you to call him on his cell phone, the number is [phone], please call today to schedule an appointment for this week, as he wants to see you in the office. Please start t aking the medication prescribed, and take all of your other home prescribed medications. If you have worsening symptoms or return of chest pain, do not hesitate to return to the emergency department. Prescriptions: Apixaban [Eliquis 5 mg Tablet] 5 mg PO BID #14 tablet RX: Cephalexin Monohydrate [Keflex 500 mg Capsule] 500 mg PO BID 5 Days #10 capsule Referrals: ROBERTA BRAVO PA-C [Primary Care Provider] - Follow up as needed BECKA MULLINS MD [ACTIVE STAFF] - Follow up tomorrow
[2018-10-16 06:59] LABS: INTERNATIONAL RATION (INR) 0.85
--- NOTE | 2018-10-16 07:12 | EKG REPORT ---
SEVERITY:- ABNORMAL ECG - ATRIAL FIBRILLATION LAD, CONSIDER LAFB OR INFERIOR INFARCT BORDERLINE PROLONGED QT INTERVAL : Confirmed by: Fabrice Martinez MD 16-Oct-2018 07:11:53
[2018-10-16 07:15] LABS: ALANINE AMINOTRANSFERASE 13 U/L (9-52); ALKALINE PHOSPHATASE 147 U/L (38-126); ANION GAP 9 (5-19); ASPARTATE AMINO TRANSFERASE 19 U/L (14-36); BILIRUBIN,DIRECT 0.4 mg/dL (0.0-0.4); BILIRUBIN,TOTAL 0.5 mg/dL (0.2-1.3); BLOOD UREA NITROGEN 26 mg/dL (7-20); CALCIUM 10.1 mg/dL (8.4-10.2); CARBON DIOXIDE 30 mmol/L (22-30); CHLORIDE 99 mmol/L (98-107); CREATINE KINASE 50 U/L (30-135); GLUCOSE 251 mg/dL (75-110); POTASSIUM 4.4 mmol/L (3.6-5.0); SODIUM 137.7 mmol/L (137-145); TOTAL PROTEIN 7.6 g/dL (6.3-8.2)
[2018-10-16 07:29] LABS: CREATINE KINASE MB 0.69 ng/mL (<4.55)
[2018-10-16 07:31] LABS: TROPONIN I < 0.012 ng/mL
--- NOTE | 2018-10-16 07:59 | RADIOLOGY REPORT (SQ) ---
EXAM DESCRIPTION: XR CHEST 1 VIEW COMPLETED DATE/TME: 10/16/2018 06:26 CLINICAL HISTORY: chest pain COMPARISON: 12/01/2017 FINDINGS: Single frontal view of the chest. Atherosclerotic calcification and tortuosity of thoracic aorta. Prior median sternotomy. Cardiomegaly. Linear left midlung discoid atelectasis. No focal airspace consolidation, large effusion, or pneumothorax. Dextroconvex scoliosis of the thoracic spine. Leads overlie the chest. Upper abdominal soft tissues are unremarkable. IMPRESSION: 1. No acute pneumonic process identified. Cardiomegaly. No significant interval change.
[2018-10-16] MEDS ORDERED: APIXABAN 5 MG TABLET PO ONE (09:11)
[2018-10-16] MEDS ORDERED: METOPROLOL TARTRATE 25 MG TABLET PO ONE (09:12)
[2018-10-16 09:14] LABS: APPEARANCE,URINE SLIGHTLY-CLOUDY; BILIRUBIN,URINE NEGATIVE (NEGATIVE); COLOR,URINE YELLOW; GLUCOSE, URINE 150 mg/dL (NEGATIVE); KETONES,URINE NEGATIVE (NEGATIVE); LEUKOCYTE ESTERASE,URINE MODERATE (NEGATIVE); NITRITE,URINE POSITIVE (NEGATIVE); PROTEIN,URINE NEGATIVE (NEGATIVE); URINE SPECIFIC GRAVITY 1.017; UROBILINOGEN,URINE NEGATIVE mg/dL (<2.0)
[2018-10-16] MEDS ORDERED: CEPHALEXIN 500 MG CAPSULE PO ONE (09:21)
[2018-10-16 11:03] VITALS: BP 164/62
--- NOTE | 2018-10-16 12:58 | EKG REPORT ---
SEVERITY:- ABNORMAL ECG - SINUS RHYTHM LEFT ANTERIOR FASCICULAR BLOCK : Confirmed by: Fabrice Martinez MD 16-Oct-2018 12:57:41
== END 2018-10-16 11:03 | disposition home or self-care (01) ==
LOC: ER 06:25
DX: I48.91 Unspecified atrial fibrillation (principal); N39.0 Urinary tract infection, site not specified; R00.2 Palpitations; I25.10 Atherosclerotic heart disease of native coronary artery without angina pectoris; I10 Essential (primary) hypertension; E78.5 Hyperlipidemia, unspecified; E11.9 Type 2 diabetes mellitus without complications; R07.9 Chest pain, unspecified; R06.02 Shortness of breath; Z79.4 Long term (current) use of insulin
CPT/HCPCS: 93005; 99285; 36415; 82553; 82550; 85025; 85610; 80053; 81001; 84484; 71045; 93010; A9270 ×3

== ENCOUNTER 2019-01-03 22:41 | Emergency (ER) | payer MEDICARE, MEDICAID ==
--- NOTE | 2019-01-03 23:36 | RADIOLOGY REPORT (SQ) ---
CLINICAL HISTORY: COUGH COMPARISON: October 16, 2018. TECHNIQUE: XR CHEST 2 VIEWS 01/03/2019 12:00 AM CDT FINDINGS: Heart is enlarged. Sternotomy was performed. There is rightward scoliosis of the thoracic spine. There is mild pulmonary edema. There is no pleural effusion. There is no pneumothorax. There are no acute osseous findings. IMPRESSION: Suspect mild diffuse pulmonary edema.
[2019-01-04] MEDS ORDERED: METHYLPREDNISOLONE INJ 125 MG/2 ML SDV IV ONE (01:46)
[2019-01-04] MEDS ORDERED: IPRATROPIUM/ALBUTEROL 0.5-2.5 MG/3 ML AMPUL NEB ONE ×3 (01:46→03:32)
--- NOTE | 2019-01-04 01:47 | ER Document Report ---
ED Respiratory Problem - General Chief Complaint: Cold Symptoms Stated Complaint: POSSIBLE FEVER,COUGH,CONGESTION Time Seen by Provider: 01/04/19 01:38 Primary Care Provider: ROBERTA BRAVO PA-C [Primary Care Provider] - Follow up as needed Notes: Patient is a 68-year-old female that comes emergency department for chief complaint of shortness of breath. She states she has had a cough, some congestion, some fevers although the fevers resolved. She states today her breathing worsened and she feels some tightness in her chest. She smokes, is not on home oxygen. Past medical history includes CABG, hypertension, diabetes on insulin. She denies history of CHF, she denies lower extremity swelling. TRAVEL OUTSIDE OF THE [place] IN LAST 30 DAYS: No - Related Data Allergies/Adverse Reactions: codeine Adverse Reaction (Intermediate, Verified 11/24/17 09:22) Nausea Past Medical History - General Information source: Patient - Social History Smoking Status: Current Every Day Smoker Smoking Education Provided: Yes - <3 min Frequency of alcohol use: None Drug Abuse: None Lives with: Family Family History: Reviewed & Not Pertinent - Past Medical History Cardiac Medical History: Reports: Hx Hypercholesterolemia, Hx Hypertension Neurological Medical History: Reports: Hx Migraine Endocrine Medical History: Reports: Hx Diabetes Mellitus Type 2 - lantus Renal/ Medical History: Denies: Hx Peritoneal Dialysis GI Medical History: Reports: Hx Gastroesophageal Reflux Disease Psychiatric Medical History: Reports: Hx Depression Past Surgical History: Reports: Hx Cardiac Surgery - triple bypass 2013, Hx Cholecystectomy, Hx Gynecologic Surgery - left oophorectomy, Hx Orthopedic Surgery - left knee replacement, Hx Tonsillectomy, Hx Tubal Ligation - Immunizations Hx Diphtheria, Pertussis, Tetanus Vaccination: No Review of Systems - Review of Systems Constitutional: No symptoms reported EENT: No symptoms reported Cardiovascular: No symptoms reported Respiratory: See HPI Gastrointestinal: No symptoms reported Genitourinary: No symptoms reported Female Genitourinary: No symptoms reported Musculoskeletal: No symptoms reported Skin: No symptoms reported Hematologic/Lymphatic: No symptoms reported Neurological/Psychological: No symptoms reported Physical Exam - Vital signs Vitals: Temp Pulse Resp BP Pulse Ox 98.3 F 81 19 149/62 H 91 L 01/03/19 23:34 01/03/19 23:34 01/03/19 23:34 01/03/19 23:34 01/03/19 23:34 - Notes Notes: GENERAL: Alert, interacts well. HEAD: Normocephalic, atraumatic. EYES: Pupils equal, round, and reactive to light. Extraocular movements intact. ENT: Oral mucosa moist, tongue midline. Oropharynx unremarkable. Airway patent. Nares patent, no nasal septal hematoma, TM's intact. NECK: Full range of motion. Supple. Trachea midline. LUNGS: Decreased breath sounds throughout with expiratory wheezes. Mild t achypnea. Congested and occasionally productive coughing episodes. HEART: Regular rate and rhythm. No murmur ABDOMEN: Soft, non-tender. Non-distended. Bowel sounds present in all 4 quadrants. GENITOURINARY: Deferred EXTREMITIES: Moves all 4 extremities spontaneously. No edema, normal radial and dorsalis pedis pulses bilaterally. No cyanosis. BACK: no cervical, thoracic, lumbar midline tenderness. No saddle anesthesia, normal distal neurovascular exam. NEUROLOGICAL: Alert and oriented x3. Normal speech. [cranial nerves II through XII grossly intact]. PSYCH: Normal affect, normal mood. SKIN: Warm, dry, normal turgor. No rashes or lesions noted. Course - Re-evaluation Re-evalutation: Patient refused an EKG. I discussed this with her, she again refused. She states that she will have to pay for it based on her insurance, she will agree to the rest of the workup but she will not agree to this. Chest x-ray was unremarkable except for possible vascular congestion. BNP is less than 300. Troponin negative. CBC, chemistry, blood gas with no concerning findings. On initial evaluation patient with tight breath sounds, expiratory wheezes. She has hypoxia. However after DuoNeb treatments, Solu-Medrol, she started opening up, wheezing more, coughing more. I recommended admission for the patient because of her hypoxia, COPD exacerbation, wheezing. Patient declines, states she wants additional treatment and wants to go home. Given additional DuoNeb's and magnesium, lung zones actually significantly improved. Patient agrees to perform ambulation and if she does well with this she is requesting discharge. She actually did ambulate quite well, did not have any labored breathing, lowest oxygen saturation was 90%. Provided with inhaler, prednisone, agreed to cover with doxycycline because of her COPD, productive cough. Discussed close follow-up, smoking cessation, return precautions. Patient states understanding and agreement with plan. - Vital Signs Vital signs: Temp Pulse Resp BP Pulse Ox 98.4 F 81 22 H 134/72 H 94 01/04/19 06:30 01/03/19 23:34 01/04/19 06:01 01/04/19 06:01 01/04/19 06:01 - Laboratory Result Diagrams: 01/04/19 02:15 01/04/19 02:15 Laboratory results interpreted by me: 01/04/19 01/04/19 01/04/19 02:15 02:15 02:15 WBC 11.2 H VBG HCO3 32.2 H Chloride 94 L Carbon Dioxide 34 H BUN 21 H Glucose 113 H Calcium 10.3 H Alkaline Phosphatase 140 H Discharge - Discharge Clinical Impression: Cough, Wheezing, Shortness of breath Condition: Stable Disposition: HOME, SELF-CARE Additional Instructions: Your evaluation is most consistent with bronchitis and COPD exacerbation. Take prednisone as prescribed, take doxycycline antibiotic as prescribed, use t he albuterol inhaler. Avoid sugary foods and carbohydrates while on prednisone because this can ivan vate your blood sugars. Follow-up closely with primary care for additional management. Stop smoking. Return immediately if you worsen in any way including return difficulty breathing, fever, or any other concerning symptoms. Prescriptions: Albuterol Sulfate [Proair HFA Inhalation Aerosol 8.5 gm MDI] 2 puff IH Q4H PRN #1 mdi PRN Reason: Doxycycline Hyclate 100 mg PO BID #14 capsule Prednisone [Deltasone 20 mg Tablet] 3 tab PO DAILY 5 Days #15 tablet Forms: Smoking Cessation Education Referrals: ROBERTA BRAVO PA-C [Primary Care Provider] - Follow up as needed
[2019-01-04 02:33] LABS: VENOUS BLOOD BASE EXCESS 5.4 mmol/L; VENOUS BLOOD HCO3 32.2 mmol/L (20-32); VENOUS BLOOD PCO2 54.6 mmHg (35-63); VENOUS BLOOD PH 7.39 (7.30-7.42)
[2019-01-04 02:36] LABS: ABSOLUTE BASOPHILS # (AUTO) 0.1 10^3/uL (0.0-0.2); ABSOLUTE EOSINOPHILS # (AUTO) 0.1 10^3/uL (0.0-0.6); ABSOLUTE LYMPHOCYTES (AUTO) 2.5 10^3/uL (0.5-4.7); ABSOLUTE MONOCYTES (AUTO) 1.1 10^3/uL (0.1-1.4); ABSOLUTE NEUT (AUTO) 7.4 10^3/uL (1.7-8.2); BASOPHILS % (AUTO) 0.6 % (0-2); EOSINOPHILS % (AUTO) 1.2 % (0-6); HEMATOCRIT 42.9 % (36.0-47.0); HEMOGLOBIN 14.6 g/dL (12.0-15.5); LYMPHOCYTES % (AUTO) 22.5 % (13-45); MEAN CORPUSCULAR HEMOGLOBIN 28.2 pg (27.0-33.4); MEAN CORPUSCULAR HGB CONC 33.9 g/dL (32.0-36.0); MEAN CORPUSCULAR VOLUME 83 fl (80-97); MONOCYTES % (AUTO) 9.6 % (3-13); PLATELET COUNT 278 10^3/uL (150-450); RED BLOOD COUNT 5.15 10^6/uL (3.72-5.28); RED CELL DISTRIBUTION WIDTH 13.7 % (11.5-14.0); SEGMENTED NEUTROPHILS % (AUTO) 66.1 % (42-78); TOTAL CELLS COUNTED % (AUTO) 100 %; WHITE BLOOD COUNT 11.2 10^3/uL (4.0-10.5)
[2019-01-04 02:50] LABS: ALANINE AMINOTRANSFERASE 19 U/L (9-52); ALKALINE PHOSPHATASE 140 U/L (38-126); ANION GAP 11 (5-19); ASPARTATE AMINO TRANSFERASE 25 U/L (14-36); BILIRUBIN,DIRECT 0.4 mg/dL (0.0-0.4); BILIRUBIN,TOTAL 0.5 mg/dL (0.2-1.3); BLOOD UREA NITROGEN 21 mg/dL (7-20); CALCIUM 10.3 mg/dL (8.4-10.2); CARBON DIOXIDE 34 mmol/L (22-30); CHLORIDE 94 mmol/L (98-107); GLUCOSE 113 mg/dL (75-110); POTASSIUM 3.6 mmol/L (3.6-5.0); SODIUM 139.1 mmol/L (137-145); TOTAL PROTEIN 7.6 g/dL (6.3-8.2)
[2019-01-04 03:02] LABS: NT PRO BNP 219 pg/mL (5-900)
[2019-01-04 03:08] LABS: TROPONIN I < 0.012 ng/mL
[2019-01-04] MEDS: MAGNESIUM SULFATE/D5W 1 GM/100 ML RTUPB IV SCH ×2 (03:50→05:09)
[2019-01-04] MEDS ORDERED: DOXYCYCLINE HYCLATE 100 MG TABLET PO ONE (06:19)
[2019-01-04] MEDS ORDERED: ALBUTEROL SULFATE HFA (90 MCG/PUFF) 8 GM MDI (1 MDI/ER DISP) IH ONE (06:19)
[2019-01-04 06:42] VITALS: BP 134/72
== END 2019-01-04 06:43 | disposition home or self-care (01) ==
LOC: ER 22:41
DX: R05 Cough (principal); R06.2 Wheezing; R06.02 Shortness of breath; R09.81 Nasal congestion; R50.9 Fever, unspecified; F17.200 Nicotine dependence, unspecified, uncomplicated; I10 Essential (primary) hypertension; E11.9 Type 2 diabetes mellitus without complications
CPT/HCPCS: 94640 ×2; 99283; 96375; 96365; 96366; 36415; 85025; 80053; 84484; 82803; 83880; 71046; A9270 ×2; J2930; J3475; J3490; J7620

== ENCOUNTER → 2019-03-01 | Outpatient (CLI) | payer MEDICAID, MEDICARE ==
--- NOTE | 2019-03-01 11:02 | WOMENS IMAGING REPORT ---
EXAM DESCRIPTION: 3D SCREENING MAMMO BILAT COMPLETED DATE/TIME: 03/01/2019 9:02 am REASON FOR STUDY: ROUTINE BILATERAL SCREENING;Z12.31 Z12.31 ENCNTR SCREEN MAMMOGRAM FOR MALIGNANT N EOPLASM OF ERIC COMPARISON: No previous available EXAM PARAMETERS: Standard craniocaudal and mediolateral oblique views of each breast recorded using digital acquisition and breast tomosynthesis. Read with the assistance of CAD. .[facility] - [employer] Version 9.2 LIMITATIONS: None. FINDINGS: Findings present which are benign by mammographic criteria. No suspicious masses, calcific ations or architectural distortion. Pertinent benign findings: Benign bilateral breast parenchymal and vascular calcifications Benign mammographic findings may include one or more of the following: Smooth masses, popcorn/rim/coa rse calcifications, asymmetries, post-procedure changes, and lesions with long-standing stability. IMPRESSION: Assessment: BENIGN MAMMOGRAPHIC FINDINGS. BIRADS 2 BREAST DENSITY: b. There are scattered areas of fibroglandular density. BIRAD: 2 BENIGN FINDING(S) RECOMMENDATION: ROUTINE SCREENING COMMENT: The patient has been notified of the results by letter per [place] requirements. Additional no tification policies are in place for contacting patient with suspicious or incomplete findings. Quality ID #[id number]: The [employer] recommends an annual screening mammogram for women aged 40 years or over. This facility utilizes a reminder system to ensure that all patients receive reminder letters, and/or direct phone calls for appointments. This includes reminders for routine scr eening mammograms, diagnostic mammograms, or other Breast Imaging Interventions when appropriate. Th is patient will be placed in the appropriate reminder system. TECHNICAL DOCUMENTATION: FINDING NUMBER: (1) ASSESSMENT: (1) JOB ID: [id number] [employer]- All Rights Reserved Reading location - IP/workstation name: [employer]-[facility]-RR
== END ==
LOC: WI 09:03
PROVIDERS: ATTEND Physician Assistant
DX: Z12.31 Encounter for screening mammogram for malignant neoplasm of breast (principal)
CPT/HCPCS: 77063; 77067

== ENCOUNTER 2019-03-13 18:38 | Emergency (ER) | payer MEDICARE ==
--- NOTE | 2019-03-13 19:10 | ER Document Report ---
ED Medical Screen (RME) - General Chief Complaint: Knee Pain Stated Complaint: KNEE PAIN Time Seen by Provider: 03/13/19 19:02 Primary Care Provider: ROBERTA BRAVO PA-C [Primary Care Provider] - Follow up as needed TRAVEL OUTSIDE OF THE [place] IN LAST 30 DAYS: No - HPI Notes: 03/13/19 19:06 Pt with h/o a-fib (on eliquis) and chronic knee pain who presents c/o posterior leg/knee pain x1 day that has been unresolving with her home conservative measures and motrin. Denies CARPENTER, fever, neck pain, URI, CP, SOB, Abd pain, dysuria, back pain, or rash. I have treated and performed a rapid initial assessment of this patient. A comprehensive ED assessment and evaluation of the patient, analysis of test results and completion of medical decision making process will be conducted by additional ED providers. PHYSICAL EXAMINATION: GENERAL: Well-appearing, well-nourished and in no acute distress. A&Ox4. Answers questions appropriately. LUNGS: Breath sounds clear to auscultation bilaterally and equal. No wheezes rales or rhonchi. HEART: Regular rate and rhythm without murmurs, rubs, gallops. Extremities: trace to 1+ pitting b/l LE's. + tenderness posterior rt knee. NEUROLOGICAL: Normal speech, normal gait. PSYCH: Normal mood, normal affect. - Related Data Allergies/Adverse Reactions: codeine Adverse Reaction (Intermediate, Verified 03/13/19 18:43) Nausea Past Medical History - Past Medical History Cardiac Medical History: Reports: Hx Hypercholesterolemia, Hx Hypertension Neurological Medical History: Reports: Hx Migraine Endocrine Medical History: Reports: Hx Diabetes Mellitus Type 2 - lantus Renal/ Medical History: Denies: Hx Peritoneal Dialysis GI Medical History: Reports: Hx Gastroesophageal Reflux Disease Psychiatric Medical History: Reports: Hx Depression Past Surgical History: Reports: Hx Cardiac Surgery - triple bypass 2014, Hx Cholecystectomy, Hx Gynecologic Surgery - left oophorectomy, Hx Orthopedic Surgery - left knee replacement, Hx Tonsillectomy, Hx Tubal Ligation - Immunizations Hx Diphtheria, Pertussis, Tetanus Vaccination: No Physical Exam - Vital signs Vitals: Temp Pulse Resp BP Pulse Ox 98.5 F 63 15 132/60 H 94 03/13/19 18:54 03/13/19 18:54 03/13/19 18:54 03/13/19 18:54 03/13/19 18:54 Course - Vital Signs Vital signs: Temp Pulse Resp BP Pulse Ox 98.5 F 63 15 132/60 H 94 03/13/19 18:54 03/13/19 18:54 03/13/19 18:54 03/13/19 18:54 03/13/19 18:54 Doctor's Discharge - Discharge Referrals: ROBERTA BRAVO, PAMallyC [Primary Care Provider] - Follow up as needed
--- NOTE | 2019-03-13 21:49 | RADIOLOGY REPORT (SQ) ---
EXAM DESCRIPTION: XR KNEE 4 OR MORE VIEWS COMPLETED DATE/TME: 03/13/2019 20:58 CLINICAL HISTORY: 68 years, Female, rt knee pain COMPARISON: None. NUMBER OF VIEWS: Four TECHNIQUE: Frontal, oblique, and lateral radiographs of the right knee were obtained. LIMITATIONS: None. FINDINGS: Moderate medial, mild lateral, and mild anterior compartment osteoarthrosis is noted, designated by joint space narrowing and marginal osteophyte formation. Irregular areas of sclerosis are noted about the medial and lateral femoral condyles, suspicious for bone infarcts. There is arterial calcinosis. No acute fracture or dislocation is evident. There is a small knee joint effusion. IMPRESSION: No acute osseous anomaly. Tricompartmental osteoarthrosis, most pronounced within the medial compartment. Small knee joint effusion. Areas of sclerosis about the medial and lateral femoral condyles, likely bone infarcts. copyright 2010 [employer]- All Rights Reserved
--- NOTE | 2019-03-13 21:54 | ER Document Report ---
ED Extremity Problem, Lower - General Chief Complaint: Knee Pain Stated Complaint: KNEE PAIN Time Seen by Provider: 03/13/19 19:02 Primary Care Provider: [facility] [Provider Group] - Follow up as needed ROBERTA BRAVO PA-C [Primary Care Provider] - Follow up tomorrow Mode of Arrival: Wheelchair Information source: Patient Notes: 68-year-old female presented to ED for complaint of chronic right knee pain that is increased in pain yesterday. She states she is tried her normal conservative measures of ibuprofen elevation and ice with no relief. She was seen by Quique Johnston who ordered a Doppler on the leg. The Doppler was negative. The Doppler tech stated there was no Ferguson's cyst either. She has had an x-ray also I am waiting for the results of that. Patient is alert oriented respirations regular and unlabored speaking in full sentences. Patient does deny any fevers neck pain headache respiratory symptoms abdominal pain back pain or rashes. She is here mostly for a increase in pain to the right knee. TRAVEL OUTSIDE OF THE [place] IN LAST 30 DAYS: No - HPI Patient complains to provider of: Pain Location: Knee Occurred: Other - Chronic worsening yesterday Onset/Duration: Gradual, Gone Quality of pain: Sharp Severity: Severe Pain Level: 5 Context: Other - Chronic pain with increase in pain Recent injury: No Associated symptoms: Other - Increase in pain to the right knee that is much worse today. Patient is on Eliquis. Exacerbated by: Hanging down, Movement, Walking Relieved by: Nothing - Related Data Allergies/Adverse Reactions: codeine Adverse Reaction (Intermediate, Verified 03/13/19 18:43) Nausea Past Medical History - General Information source: Patient - Social History Smoking Status: Current Every Day Smoker Cigarette use (# per day): Yes - 5 cigarettes a day Smoking Education Provided: Yes - 4 minutes Frequency of alcohol use: None Drug Abuse: None Lives with: Friend Family History: Reviewed & Not Pertinent Patient has suicidal ideation: No Patient has homicidal ideation: No - Past Medical History Cardiac Medical History: Reports: Hx Coronary Artery Disease, Hx Hypercholesterolemia, Hx Hypertension, Hx Peripheral Vascular Disease, Other - Varicose veins Pulmonary Medical History: Reports: None EENT Medical History: Reports: None Neurological Medical History: Reports: Hx Migraine Endocrine Medical History: Reports: Hx Diabetes Mellitus Type 2 - lantus Renal/ Medical History: Reports: None Malignancy Medical History: Reports: None GI Medical History: Reports: Hx Gastroesophageal Reflux Disease Musculoskeletal Medical History: Reports Hx Musculoskeletal Deformity, Reports Hx Musculoskeletal Trauma, Reports Other - Varicose veins Skin Medical History: Reports None Psychiatric Medical History: Reports: Hx Depression Traumatic Medical History: Reports: None Infectious Medical History: Reports: None Past Surgical History: Reports: Hx Cardiac Surgery - triple bypass 2014, Hx Cholecystectomy, Hx Gynecologic Surgery - left oophorectomy, Hx Orthopedic Surgery - left knee replacement, Hx Tonsillectomy, Hx Tubal Ligation - Immunizations Immunizations up to date: No Hx Diphtheria, Pertussis, Tetanus Vaccination: No Review of Systems - Review of Systems Constitutional: No symptoms reported EENT: No symptoms reported Cardiovascular: No symptoms reported Respiratory: No symptoms reported Gastrointestinal: No symptoms reported Genitourinary: No symptoms reported Female Genitourinary: No symptoms reported Musculoskeletal: Joint pain - Left knee pain, chronic pain with increase in pain Skin: No symptoms reported Hematologic/Lymphatic: No symptoms reported Neurological/Psychological: No symptoms reported -: Yes All other systems reviewed and negative Physical Exam - Vital signs Vitals: Temp Pulse Resp BP Pulse Ox 98.5 F 63 15 132/60 H 94 03/13/19 18:54 03/13/19 18:54 03/13/19 18:54 03/13/19 18:54 03/13/19 18:54 Interpretation: Normal - General General appearance: Appears well, Alert - HEENT Head: Normocephalic, Atraumatic Eyes: Normal Pupils: PERRL - Respiratory Respiratory status: No respiratory distress Chest status: Nontender Breath sounds: Normal Chest palpation: Normal - Cardiovascular Rhythm: Regular Heart sounds: Normal auscultation Murmur: No - Abdominal Inspection: Normal Distension: No distension Bowel sounds: Normal Tenderness: Nontender Organomegaly: No organomegaly - Back Back: Normal, Nontender - Extremities General upper extremity: Normal inspection, Nontender, Normal color, Normal ROM, Normal temperature General lower extremity: Normal ROM, Normal temperature, Normal weight bearing. No: Mariel's sign Knee: Tender - Tenderness to posterior right knee, Pain with ROM, Patellar tendon intact, Popliteal fossa tender, Other - Varicose veins. No: Tender joint line Calf: Other - Varicose vein Ankle: Edema - Varicose veins 1+ pedal edema bilateral, Other Foot: Edema - 1+ bilateral - Neurological Neuro grossly intact: Yes Cognition: Normal Orientation: AAOx4 Riley Coma Scale Eye Opening: Spontaneous Riley Coma Scale Verbal: Oriented [place] Coma Scale Motor: Obeys Commands Riley Coma Scale Total: 15 Speech: Normal Motor strength normal: LUE, RUE, LLE, RLE Sensory: Normal - Psychological Associated symptoms: Normal affect, Normal mood - Skin Skin Temperature: Warm Skin Moisture: Dry Skin Color: Normal Course - Re-evaluation Re-evalutation: 03/13/19 22:07 Discussed venous Doppler and x-rays of the knee with patient and written report of x-rays given to patient to follow-up with primary care and with orthopedics. Patient was treated with ibuprofen and a knee immobilizer while in the emergency room. She was discharged home with instructions to follow-up with her primary doctor. Patient verbalized understanding and agreement with treatment plan. Patient verbalizes that she knows she needs a knee replacement to the right knee but has been put it off for 10 years. - Vital Signs Vital signs: Temp Pulse Resp BP Pulse Ox 97.7 F 63 18 165/61 H 93 03/13/19 22:19 03/13/19 22:19 03/13/19 22:19 03/13/19 22:19 03/13/19 22:19 - Diagnostic Test Radiology reviewed: Image reviewed, Reports reviewed Procedures - Immobilization Right Knee Time completed: 22:25 Pre-Proc Neuro Vasc Exam: Normal Immobilizer type: Knee immobilizer Performed by: RYANN Post-Proc Neuro Vasc Exam: Normal Alignment checked and good: Yes Discharge - Discharge Clinical Impression: Chronic pain of right knee, Peripheral edema, Effusion, right knee, Tricompartment osteoarthritis of right knee Condition: Stable Disposition: HOME, SELF-CARE Additional Instructions: Arthritis Your symptoms are due to arthritis. Arthritis is an inflammation of the joints. There are many types -- osteoarthritis (due to "wear and tear"), auto- immmune arthritis (such as rheumatoid, lupus, Garret's, and others), and crystal-induced arthritis (such as gout and pseudogout). The physician's examination, combined with laboratory tests, will determine the cause of your arthritis. All types of arthritis are treated with antiinflammatory medications. Other medication may be required for special types of arthritis, or if your problem does not respond to the antiinflammatory medicine. Local warmth may be helpful. Move the involved joints through the full range of motion daily. Mild exercise is usually still possible for most persons with arthritis (ask your physician). Swimming provides good exercise without damaging the joints. Contact the physician if you are worsening in any way. Knee Effusion You have a fluid collection in the knee joint, called an effusion. This fluid build up can occur from irritation of the synovial membrane lining the knee joint or from a more serious injury to the knee. Irritation of the membrane can occur from excessive, repetitive knee activitiy, like kneeling or squatting for extended periods or even just excessive walking, jogging, or skiing. Effusions also can occur with infections in the joint and with some arthritic conditions, especially gout. Fluid collections in these situations are usually yellow in color and either clear or cloudy in appearance. Significant injury to the knee can result in fluid collection which is partly or entirely blood and this condition is known as a hemarthrosis of the knee joint. If the fluid collection is not too large and/or painful, it can be managed conservatively with rest, ice packs, and anti-inflammatory and pain medications as needed. If the fluid collection is large and very painful, the knee joint can be drained (aspirated) by a relatively minor procedure of inserting a needle in the joint and removing some or all of the fluid present. If your knee was aspirated, you should rest it as much as possible for a few days, keep a pressure dressing around the knee and apply ice packs for at least 48 - 72 hours. If there are signs of developing infection such as heat and redness of the knee, fever, etc. you should return immediately for a recheck. Chronic Pain Control Stress, inactivity, and depression make pain more severe regardless of the cause of the pain. Stress and poor physical condition can cause pain such as headaches and backache. Relaxation: Rest in a quiet place with your eyes closed for 20 minutes twice daily. Concentrate on a pleasant image, or simply "feel" your breathing. Clear your mind. Stress management: Deal with your "stressors." Either take action, or eliminate the stressor from your life. Don't let things hang over you. Accept those things you can't change. Nutrition: Eat small, balanced meals -- don't skip, don't overeat. Meals should be high-carbohydrate, low-sugar, low-fat. Exercise: Exercise helps painful conditions and eases stress. Get 30 minutes of moderate exercise, five days a week. Do an activity that does not flare your pain. Precautions: Pain which continues to disrupt daily activities, or which changes in nature, requires a medical evaluation. Pain Clinic referral is available. We do not manage chronic pain in the Emergency Department. We will try to appropriately help you through an acute flare of your chronic painful condition, but for on-going chronic pain that does not improve, you will need to see your private doctor or metal painter. We do not provide repeated medication management of chronic painful conditions. If you wish, we can provide the name of local pain management physicians. Acetaminophen Acetaminophen may be taken for pain relief or fever control. It's much safer than aspirin, offering a wider range of "safe" dosages. It is safe during . Some brand names are Tylenol, Panadol, Datril, Anacin 3, Tempra, and Liquiprin. Acetaminophen can be repeated every four hours. The following are maximum recommended dosages: WEIGHT Dose Drops Elixir Chewable(80mg) (LBS.) drprs=droppers tsp=teaspoon 6 40 mg .4 ml (1/2) 6-11 80 mg .8 ml (full) 1/2 tsp 1 tab 12-16 120 mg 1 1/2 drprs 3/4 tsp 1 1/2 tabs 17-23 160 mg 2 drprs 1 tsp 2 tabs 24-30 240 mg 3 drprs 1 1/2 tsp 3 tabs 30-35 320 mg 2 tsp 4 tabs 36-41 360 mg 2 1/4 tsp 4 1/2 tabs 42-47 400 mg 2 1/2 tsp 5 tabs 48-53 480 mg 3 tsp 6 tabs 54-59 520 mg 3 1/4 tsp 6 1/2 tabs 60-64 560 mg 3 1/2 tsp 7 tabs 65-70 600 mg 3 3/4 tsp 7 1/2 tabs 71-76 640 mg 4 tsp 8 tabs 77-82 720 mg 4 1/2 tsp 9 tabs 83-88 800 mg 5 tsp 10 tabs >89 pounds or adults 650 mg to 900 mg Acetaminophen can be repeated every four hours. Maximum daily dose not to exceed 4000 mg. These maximum recommended dosages are slightly higher than the dosages written on the product container, but these dosages are very safe and well below the toxic dosage for acetaminophen. Ibuprofen Ibuprofen is an excellent, safe drug for pain control. In addition, it has potent antiinflammatory effects which are beneficial, especially in the treatment of injuries, arthritis, or tendonitis. It's best to take ibuprofen with food. Persons with ulcer disease or allergy to aspirin should notify their physician of this before taking ibuprofen. Take the medication exactly as prescribed. Don't take additional doses unless instructed to do so by your doctor. If you develop wheezing, shortness of breath, hives, faintness, stomach pain, vomiting, or dark black stools, return for re-evaluation at once. Knee Immobilizing Splint The knee immobilizing splint will protect the injury while healing begins. This type of splint does not allow the knee to bend at all. No running or sports will be possible. If the splint allows painfree walking, it's giving adequate protection. If there is still significant pain, crutches may be needed as well. Don't do anything that hurts. Adjusted the splint, if necessary. The stiffeners on the sides are attached with Velcro, so they can be easily moved to adjust for thigh and calf size. If you need help with these adjustments, come back. You will lose muscle strength in the thigh while using this splint. The doctor will advise you if it's safe to do isometric knee exercises while you use it. Knee Exercise Program It's important to strengthen the muscles around the knee. This protects the injured area and stabilizes a knee that's been loosened by ligament injury. EARLY - Even when motion of the knee is painful (even when wearing a splint), you can begin isometric "quads" exercises. While sitting, hold the knee out, and contract the muscles to stiffen it. It shouldn't be straightened all the way -- stiffen it in a slightly-bent position. Lift the leg and draw a "T" with your foot, up to 100 times. When it becomes easy, add a weight on your foot. LATE - When the doctor advises you, you can begin moving the knee against resistance. The front muscles (quadriceps) are most important. While sitting at a [employer], straighten the knee forcefully while pushing a weight up with your ankle. Start with five to 10 pounds. Do 10 to 20 repetitions, increasing the weight as tolerated. Don't use more weight than is comfortable! Over a few weeks, work up to 35 to 50 pounds. Athletes should try to reach 70 to 90 pounds. FOLLOW-UP CARE: If you have been referred to a physician for follow-up care, call the physicians office for an appointment as you were instructed or within the next two days. If you experience worsening or a significant change in your symptoms, notify the physician immediately or return to the Emergency Department at any time for re-evaluation. Forms: Elevated Blood Pressure, Smoking Cessation Education Referrals: [facility] [Provider Group] - Follow up as needed ROBERTA BRAVO PA-C [Primary Care Provider] - Follow up tomorrow
[2019-03-13] MEDS ORDERED: IBUPROFEN 800 MG TABLET PO ONE (22:05)
[2019-03-13 22:20] VITALS: BP 165/61
--- NOTE | 2019-03-14 00:50 | XCELERA REPORT ---
[address] [place] [facility] [address] Lower Extremity Venous Evaluation Procedure: Color flow and duplex imaging of the veins of the right lower extremity as well as the left Common Femoral vein. Right Sided Venous Evaluation Normal vessel filling wall to wall, compression and augmentation as well as Colour flow down to the infrageniculate veins. Left Sided Venous Evaluation The left common femoral vein is fully compressible. Spontaneous and phasic flow is present in the left common femoral vein. Interpretation Summary No duplex evidence of DVT or obstruction in the right lower extremity nor in the left Common Femoral vein. Name: SANDY LAURA Age: 68 yrs Gender: Female : 1950 Patient Status: Emergency Patient Location: ER Study Date: 03/13/2019 08:11 PM Reason For Study: Rt posterior leg pain Ordering Physician: GLADYS JACOBSON Performed By: Swetha Nickerson : GLADYS JACOBSON > Devan Monique
== END 2019-03-13 22:25 | disposition home or self-care (01) ==
LOC: ER 18:38
DX: M17.11 Unilateral primary osteoarthritis, right knee (principal); I83.811 Varicose veins of right lower extremity with pain; I83.893 Varicose veins of bilateral lower extremities with other complications; M25.461 Effusion, right knee; M25.561 Pain in right knee; G89.29 Other chronic pain; E11.51 Type 2 diabetes mellitus with diabetic peripheral angiopathy without gangrene; F17.210 Nicotine dependence, cigarettes, uncomplicated; Z71.6 Tobacco abuse counseling; I25.10 Atherosclerotic heart disease of native coronary artery without angina pectoris; I10 Essential (primary) hypertension; Z95.1 Presence of aortocoronary bypass graft; Z96.652 Presence of left artificial knee joint
CPT/HCPCS: 99406; 99284; 93971 ×2; 73564; L1830; A9270